=== PATIENT | male | born 1950 | race Caucasian/White ===

== ENCOUNTER 2019-12-30 11:48 | Outpatient (REF) | payer MEDICARE, SELFPAY ==
[2019-12-30 13:10] LABS: Alanine Aminotransferase 11 U/L (0-40); Alkaline Phosphatase 156 U/L (39-117); Anion Gap 12 (12-20); Aspartate Amino Transferase 12 U/L (5-37); Bilirubin Total 0.6 mg/dL (0.0-1.0); Blood Urea Nitrogen 11 mg/dL (9-16); Calcium 9.1 mg/dL (8.4-10.2); Carbon Dioxide 29 mmol/L (22-29); Chloride 103 mmol/L (96-108); Cholesterol 191 mg/dL; Estimated Glomerular Filt Rate > 60; Glucose Fasting 108 mg/dL (60-99); HDL Cholesterol 35 mg/dL; LDL Cholesterol Calculated 138 mg/dl; Potassium 4.2 mmol/l (3.3-5.1); Sodium 140 mmol/L (135-145); Total Protein 7.5 g/dL (6.5-8.0); Triglycerides 90 mg/dL
== END 2019-12-30 11:49 | disposition home or self-care (01) ==
LOC: HO.LAB 11:48
PROVIDERS: PCP Internal Medicine; Visit Provider Internal Medicine
DX: E78.00 Pure hypercholesterolemia, unspecified (principal)
CPT/HCPCS: 80053; 80061

== ENCOUNTER 2019-12-31 12:15 | Outpatient (REF) | payer MEDICARE, SELFPAY ==
[2019-12-31 12:41] LABS: MANUAL DIFF FLAG NO
[2019-12-31 12:46] LABS: Basophils Percent Auto 0.5 % (0-2); Eosinophils Absolute Auto 0.1 X10*3/uL (0.0-0.4); Eosinophils Percent Auto 1.4 % (0-4); Hemoglobin 12.1 g/dl (14.0-18.0); Imm Gran Abs Auto 0.02 X10*3/uL (0.00-0.03); Imm Gran Pct Auto 0.2 % (0.0-0.4); Lymphocytes Absolute Auto 1.9 X10*3/uL (1.2-4.9); Lymphocytes Percent Auto 23.2 % (20-40); Mean Corpuscular HGB Conc 31.8 g/dl (31.0-36.0); Mean Corpuscular Hemoglobin 29.5 pg (27.0-33.0); Mean Corpuscular Volume 92.7 fL (80-98); Monocytes Absolute Auto 0.8 X10*3/uL (0.1-1.2); Monocytes Percent Auto 9.3 % (2-11); Neutrophils Absolute Auto 5.4 X10*3/uL (2.0-8.3); Neutrophils Percent Auto 65.4 % (45-73); Platelet Count 254 X10*3/uL (160-400); Red Cell Distribution Width 13.7 % (11.0-16.0); White Blood Count 8.3 X10*3/uL (4.8-10.8)
[2019-12-31 13:56] LABS: Alanine Aminotransferase 11 U/L (0-40); Alkaline Phosphatase 153 U/L (39-117); Anion Gap 12 (12-20); Aspartate Amino Transferase 14 U/L (5-37); Bilirubin Direct < 0.2 mg/dL (0.0-0.5); Bilirubin Total 0.3 mg/dL (0.0-1.0); Blood Urea Nitrogen 13 mg/dL (9-16); Carbon Dioxide 29 mmol/L (22-29); Chloride 102 mmol/L (96-108); Estimated Glomerular Filt Rate > 60; Glucose Random 105 mg/dL (60-115); Potassium 4.1 mmol/l (3.3-5.1); Sodium 139 mmol/L (135-145); Total Protein 7.4 g/dL (6.5-8.0)
[2019-12-31 14:16] LABS: T4 Thyroxine 7.1 ug/dL (4.5-12.0)
[2019-12-31 16:09] LABS: Folate 15.6 ng/mL (> or = 4.0); Vitamin B12 295 pg/mL (200-900)
== END 2019-12-31 12:16 | disposition home or self-care (01) ==
LOC: HO.LAB 12:15
PROVIDERS: Visit Provider Psychiatry & Neurology Neurology
DX: G30.9 Alzheimer's disease, unspecified (principal)
CPT/HCPCS: 36415; 80053; 80076; 82607; 82746; 84436; 84443; 85025

== ENCOUNTER 2020-01-21 09:08 | Outpatient (REF) | payer MEDICARE, SELFPAY ==
--- NOTE | 2020-01-21 09:09 | CT_ITS ---
EXAMINATION: CT HEAD WITHOUT CONTRAST CLINICAL INFORMATION: Alzheimer's disease. COMPARISON: None. TECHNIQUE: Contiguous axial imaging was performed from the skull base to vertex without intravenous administration of contrast. This CT examination was performed using dose optimization techniques as appropriate, variously including the following: *Automated exposure control *Adjustment of mA and/or kV according to patient size (this includes techniques or standardized protocols for targeted exams where dose is matched to indication/reason for exam; i.e. extremities or head) *Use of iterative reconstruction technique DLP: 681 mGy-cm. FINDINGS: There is no evidence of acute intracranial hemorrhage or territorial infarction. No abnormal mass effect or midline shift is seen. Marcelino to white matter differentiation is well preserved. No extra-axial fluid collections are identified. Lateral ventricles are symmetrical in size and mildly prominent and so a re the frontal cortical sulci. There is no abnormal attenuation within the brain parenchyma. There is diffuse calvarial osteopenia with no lytic or sclerotic process seen. The scalp soft tissues are normal. The mastoid air cells and visualized portions of the paranasal sinuses are well aerated. CT/CT head/brain wo con IMPRESSION: No acute intracranial process seen.
== END 2020-01-21 09:09 | disposition home or self-care (01) ==
LOC: HO.CT 09:08
PROVIDERS: PCP Internal Medicine; Visit Provider Psychiatry & Neurology Neurology
DX: S06.9X9A Unspecified intracranial injury with loss of consciousness of unspecified duration, initial encounter (principal); G30.9 Alzheimer's disease, unspecified
CPT/HCPCS: 70450

== ENCOUNTER 2020-02-05 20:40 | Emergency (ER) | payer MEDICARE, SELFPAY ==
[2020-02-05 20:50] VITALS: BP 118/66; BP 128/88; PULSE 83; PULSE 90; RESP 18; TEMP 37; O2SAT 97; O2SAT 99; BMI 25.7
--- NOTE | 2020-02-05 21:12 | CT_ITS ---
EXAMINATION: CT HEAD WITHOUT CONTRAST CT CERVICAL SPINE WITHOUT CONTRAST CLINICAL INFORMATION: Fall. COMPARISON: CT head and cervical spine 08/26/2019. CT head 01/21/2020. TECHNIQUE: Imaging was performed from the skull base to vertex without intravenous administration of contrast. In addition, helical noncontrast CT imaging was acquired through the cervical spine and source images were reviewed along with axial reconstructions and sagittal and coronal MPRs. [This CT examination was performed using dose optimization techniques as appropriate, variously including the following: *Automated exposure control *Adjustment of mA and/or kV according to patient size (this includes techniques or standardized protocols for targeted exams where dose is matched to indication/reason for exam; i.e. extremities or head) *Use of iterative reconstruction technique] DLP: 1017 mGy-cm FINDINGS: HEAD: No intracranial mass, hemorrhage, or midline shift is visualized. There is atrophy with prominence of the ventricles and the sulci and hypodensity of the periventricular white matter due to chronic small vessel ischemic disease. There are vascular calcifications of the internal carotid arteries bilaterally. No extra-axial collections are identified. The paranasal sinuses and mastoid air cells are well aerated. CERVICAL SPINE: There is no evidence of acute cervical spine fracture. Vertebral bodies remain normal in height. Cervical vertebrae have normal alignment. Cervical disc heights are normal. The facet joints are normal. No pre- or paravertebral soft tissue abnormality is identified. Limited assessment of the lung apices is unremarkable. CT/CT cervical spine wo con IMPRESSION: 1. No acute intracranial pathology. 2. No CT evidence of acute cervical spine fracture or traumatic subluxation
--- NOTE | 2020-02-05 21:12 | ED.FALL ---
HPI - Fall General Chief Complaint: Fall Stated Complaint: ankle pain Time Seen by Provider: 02/05/20 21:12 Source: patient and EMS Mode of arrival: EMS Limitations: altered mental status (dementia) History of Present Illness MD complaint: fall Onset (ago): unknown Fall from: standing Fall witnessed: no Place fall occurred: home Loss of consciousness: none Prolonged down time: no Symptoms prior to fall: none Context: other (not sure) Location of injury - extremities: right: ankle Related Data Home Medications Medication Instructions Recorded Confirmed atorvastatin 20 mg tablet 20 mg PO DAILY 01/20/20 02/05/20 Multi Vitamin 1 tab PO DAILY 02/05/20 02/05/20 Allergies Allergy/AdvReac Type Severity Reaction Status Date / Time No Known Allergies [NKA] Allergy Mild NOT Verified 02/01/20 09:06 APPLICABLE Review of Systems Review of Systems: Constitutional : No Fever, No Chills ENT/Mouth : No Ear Pain, No Hoarseness, No sore throat Eyes: No Eye Pain, No Swelling, No Redness, No Foreign Body Cardiovascular : No Chest Pain, No SOB Respiratory : No Cough, No Dyspnea Gastrointestinal : No Nausea, No Vomiting, No Diarrhea, No abdominal Pain Genitourinary : No Dysuria, No Hematuria Musculoskeletal : positive joint pain, No Myalgias, No Joint Swelling Skin : No Skin lacerations, No rash Neuro : No Weakness, No Numbness, No Loss of Consciousness, No Dizziness, No Headache Psych : No Anxiety/Panic, No Depression All other systems reviewed and are negative PMFSH Past Medical History Attestation statement: The following information was validated with the patient. Medical History Alzheimer's disease with early onset Diabetes mellitus Pure hypercholesterolemia Urinary incontinence Surgical History H/O hand surgery Family History Family History (Updated 01/19/20 @ 08:56 by EVA Liu) Father Throat cancer Mother Uterine cancer Family/Other FH: mental illness Social History Social History Alcohol intake: never Smoking Status: Never smoker Smoked in Last 30 Days: No Use of substances other than those prescribed or required for medical reasons: Unknown Advance Directives: No Advance Directives Information Provided: No Physical Exam Vital Signs: Vital Signs: Last Vital Signs Temp 97.9 F 02/05/20 23:59 Pulse 81 02/05/20 23:59 Resp 18 02/06/20 03:48 BP 138/77 02/05/20 23:59 Pulse Ox 99 02/05/20 23:59 Body Mass Index 25.7 Appearance: Alert. Oriented X2. No acute distress. Eyes: Pupils equal, round and reactive to light. ENT: Pharynx normal. Contusion to back of head Neck: Normal inspection. Neck supple. CVS: Normal heart rate and rhythm. Pulses normal. Respiratory: No respiratory distress. Breath sounds normal. Abdomen: Soft and nontender. Skin: Skin warm and dry. Normal skin color. Normal skin turgor. Extremities: No lower extremity edema. No calf ttp R ankle swelling around lateral malleolus - distal NV intact Neuro: Oriented X 2 No motor deficit. No sensory deficit. Course Course Course Narrative: Maricruz daughter [phone] - patient is very unsteady with frequent falls will have PT and CM involved for possible services, discussed results with daughter signed out to oncoming provider pending CM/PT Procedures Orthopedic Splinting/Casting Injury #1: Side: right Lower Extremity Injury Location: ankle Lower Extremity Immobilizer: AirCast MDM - Fall MDM Narrative Medical decision making narrative: 69 yo male with hx of dementia here with unwitnessed fall exam shows contusion to back of head and R ankle swelling - will need labs, EKG, UA, troponin, CT scan of head and neck given dementia, xrays of ankle, dispo per results and findings. Lab Data Result diagrams: 02/05/20 23:12 02/05/20 23:12 Labs: Lab Results 02/05/20 02/05/20 02/05/20 Range/Units 23:12 23:12 23:12 WBC 10.6 (4.8-10.8) X10*3/uL RBC 3.78 L (4.60-5.80) X10*6/uL Hgb 11.5 L (14.0-18.0) g/dl Hct 34.9 L (42-52) % MCV 92.3 (80-98) fL MCH 30.4 (27.0-33.0) pg MCHC 33.0 (31.0-36.0) g/dl RDW 13.5 (11.0-16.0) % Plt Count 212 (160-400) X10*3/uL MPV 11.2 (9.4-12.4) fL Immature Gran % (Auto) 0.2 (0.0-0.4) % Neut % (Auto) 74.9 H (45-73) % Lymph % (Auto) 14.7 L (20-40) % [place] % (Auto) 8.7 (2-11) % Eos % (Auto) 1.0 (0-4) % Baso % (Auto) 0.5 (0-2) % Lymph # (Auto) 1.6 (1.2-4.9) X10*3/uL [place] # (Auto) 0.9 (0.1-1.2) X10*3/uL Eos # (Auto) 0.1 (0.0-0.4) X10*3/uL Baso # (Auto) 0.1 (0.0-0.2) X10*3/uL Abs Immat Gran (auto) 0.02 (0.00-0.03) X10*3/uL Absolute Neuts (auto) 7.9 (2.0-8.3) X10*3/uL Absolute Nucleated RBC 0.000 (0.0-0.012) X10*3/uL Nucleated RBC % (auto) 0.0 (0.0-0.2) /100WBC PT 13.3 H (10.8-13.0) SEC INR 1.1 (0.9-1.1) APTT 31.5 (24.1-38.0) SEC Sodium 139 (135-145) mmol/L Potassium 4.3 (3.3-5.1) mmol/l Chloride 106 (96-108) mmol/L Carbon Dioxide 23 (22-29) mmol/L Anion Gap 14 (12-20) BUN 18 H (9-16) mg/dL Creatinine 0.79 (0.5-1.4) mg/dL Estim Creat Clear Calc 74.9 Estimated GFR > 60 Random Glucose 116 H (60-115) mg/dL Calcium 8.6 (8.4-10.2) mg/dL Magnesium (1.6-2.6) mg/dL Total Bilirubin (0.0-1.0) mg/dL Direct Bilirubin (0.0-0.5) mg/dL AST (5-37) U/L ALT (0-40) U/L Alkaline Phosphatase (39-117) U/L Total Creatine Kinase 201 H (38-174) U/L Troponin I High Sens (<3.5-35.0) ng/L Total Protein (6.5-8.0) g/dL Albumin (3.5-5.0) g/dL Lipase (8-78) U/L Urine Color Urine Appearance Urine pH (5.0-8.0) Ur Specific [place] (1.005-1.025) Urine Protein (NEG-TRACE) MG/DL Urine Glucose (UA) (NEG) MG/DL Urine Ketones (NEG) MG/DL Urine Blood (NEG) Urine Nitrite (NEG) Ur Leukocyte Esterase (NEG) 02/05/20 02/05/20 02/05/20 Range/Units 23:12 23:12 23:44 WBC (4.8-10.8) X10*3/uL RBC (4.60-5.80) X10*6/uL Hgb (14.0-18.0) g/dl Hct (42-52) % MCV (80-98) fL MCH (27.0-33.0) pg MCHC (31.0-36.0) g/dl RDW (11.0-16.0) % Plt Count (160-400) X10*3/uL MPV (9.4-12.4) fL Immature Gran % (Auto) (0.0-0.4) % Neut % (Auto) (45-73) % Lymph % (Auto) (20-40) % [place] % (Auto) (2-11) % Eos % (Auto) (0-4) % Baso % (Auto) (0-2) % Lymph # (Auto) (1.2-4.9) X10*3/uL [place] # (Auto) (0.1-1.2) X10*3/uL Eos # (Auto) (0.0-0.4) X10*3/uL Baso # (Auto) (0.0-0.2) X10*3/uL Abs Immat Gran (auto) (0.00-0.03) X10*3/uL Absolute Neuts (auto) (2.0-8.3) X10*3/uL Absolute Nucleated RBC (0.0-0.012) X10*3/uL Nucleated RBC % (auto) (0.0-0.2) /100WBC PT (10.8-13.0) SEC INR (0.9-1.1) APTT (24.1-38.0) SEC Sodium (135-145) mmol/L Potassium (3.3-5.1) mmol/l Chloride (96-108) mmol/L Carbon Dioxide (22-29) mmol/L Anion Gap (12-20) BUN (9-16) mg/dL Creatinine (0.5-1.4) mg/dL Estim Creat Clear Calc Estimated GFR Random Glucose (60-115) mg/dL Calcium (8.4-10.2) mg/dL Magnesium 1.9 (1.6-2.6) mg/dL Total Bilirubin 0.4 (0.0-1.0) mg/dL Direct Bilirubin < 0.2 (0.0-0.5) mg/dL AST 17 (5-37) U/L ALT 15 (0-40) U/L Alkaline Phosphatase 151 H (39-117) U/L Total Creatine Kinase (38-174) U/L Troponin I High Sens < 3.5 (<3.5-35.0) ng/L Total Protein 7.1 (6.5-8.0) g/dL Albumin 3.9 (3.5-5.0) g/dL Lipase 39 (8-78) U/L Urine Color YELLOW Urine Appearance CLEAR Urine pH 7.0 (5.0-8.0) Ur Specific [place] 1.020 (1.005-1.025) Urine Protein NEG (NEG-TRACE) MG/DL Urine Glucose (UA) NEG (NEG) MG/DL Urine Ketones NEG (NEG) MG/DL Urine Blood NEG (NEG) Urine Nitrite NEG (NEG) Ur Leukocyte Esterase NEG (NEG) ECG Data Attestation: I personally reviewed and interpreted this ECG as follows: ECG interpretation date: 02/05/20 ECG interpretation time: 22:12 Interpretation: Rate: 74 Rhythm: NSR [place]: normal , LVH Normal P waves. Normal MICHAEL. Normal QRS complex. ST T wave : normal qTC: normal prior studies: no acute ischemia, no change The study has been interpreted contemporaneously by me. . Discharge Plan Discharge Clinical Impression: At high risk for falls Ankle sprain Qualifiers: Encounter type: initial encounter Involved ligament of ankle: anterior talofibular ligament Laterality: right Qualified Code(s): S93.491A - Sprain of other ligament of right ankle, initial encounter Contusion Qualifiers: Encounter type: initial encounter Contusion area: head Contusion of head detail: scalp Qualified Code(s): S00.03XA - Contusion of scalp, initial encounter Instructions: Ankle Sprain (ED), Head Injury (ED), Fall Prevention (ED) Additional Instructions: return to ED for any worsening symptoms or concerns wear a splint for the next 10 days, can weight bear as tolerated Prescriptions: No Action Multi Vitamin 1 tab PO DAILY RF: 0 atorvastatin 20 mg tablet 20 mg PO DAILY RF: 0 Referrals: Physician,Unknown [Primary Care Provider] - 2 days (PCP as needed)
--- NOTE | 2020-02-05 21:13 | ECG_ITS ---
Test Reason : FALL Blood Pressure : / mmHG Vent. Rate : 085 BPM Atrial Rate : 085 BPM P-R Int : 148 ms QRS Dur : 078 ms QT Int : 368 ms P-R-T Axes : 058 -02 031 degrees QTc Int : 437 ms Normal sinus rhythm Minimal voltage criteria for LVH, may be normal variant ST elevation, consider early repolarization Borderline ECG When compared with ECG of 26-AUG-2019 18:53, Premature atrial complexes are no longer Present Referred By: Marlyn Reeder Electronically Signed By:BRIANNA JOHNSON MD
--- NOTE | 2020-02-05 21:13 | XR_ITS ---
EXAMINATION: CHEST 1 VIEW CLINICAL INFORMATION: Pain after fall. COMPARISON: August 26, 2019. TECHNIQUE: An AP view of the chest is provided. FINDINGS: The cardiac silhouette is not enlarged. The mediastinal and hilar contours are unremarkable. There are neither pleural effusions nor pneumothoraces. There are no consolidations. The osseous structures are stable. XR/XR chest 1V IMPRESSION: No evidence for acute disease.
--- NOTE | 2020-02-05 21:21 | XR_ITS ---
EXAMINATION: RIGHT ANKLE 3 VIEWS CLINICAL INFORMATION: Pain after fall. COMPARISON: None. TECHNIQUE: AP, lateral, oblique views of the right ankle were obtained. FINDINGS: There are no fractures or dislocations. There is soft tissue swelling overlying the lateral malleolus. No ankle joint effusion is identified. XR/XR ankle RT min 3V IMPRESSION: Mild soft tissue swelling without fracture or dislocation.
[2020-02-05 22:00] VITALS: BP 131/74; PULSE 77; RESP 20; TEMP 36.8; O2SAT 97
[2020-02-05] MEDS: Acetaminophen 325 MG TABLET 650 MG PO (22:22)
--- NOTE | 2020-02-05 22:44 | PC.NURSE ---
Addendum entered by Gabriel Royal RN 02/06/20 03:54: Updates given to daughter that pt will be placed on case management, and PT consult in the morning. Original Note: Lopez Alcantara can be reached at [phone]. Call her with updates and a ride upon discharge.
[2020-02-05 23:21] LABS: MANUAL DIFF FLAG NO
[2020-02-05 23:24] LABS: Basophils Absolute Auto 0.1 X10*3/uL (0.0-0.2); Basophils Percent Auto 0.5 % (0-2); Eosinophils Absolute Auto 0.1 X10*3/uL (0.0-0.4); Hematocrit 34.9 % (42-52); Hemoglobin 11.5 g/dl (14.0-18.0); Imm Gran Abs Auto 0.02 X10*3/uL (0.00-0.03); Imm Gran Pct Auto 0.2 % (0.0-0.4); Lymphocytes Absolute Auto 1.6 X10*3/uL (1.2-4.9); Lymphocytes Percent Auto 14.7 % (20-40); Mean Corpuscular Hemoglobin 30.4 pg (27.0-33.0); Mean Corpuscular Volume 92.3 fL (80-98); Mean Platelet Volume 11.2 fL (9.4-12.4); Monocytes Absolute Auto 0.9 X10*3/uL (0.1-1.2); Monocytes Percent Auto 8.7 % (2-11); Neutrophils Absolute Auto 7.9 X10*3/uL (2.0-8.3); Neutrophils Percent Auto 74.9 % (45-73); Platelet Count 212 X10*3/uL (160-400); Red Blood Count 3.78 X10*6/uL (4.60-5.80); Red Cell Distribution Width 13.5 % (11.0-16.0); White Blood Count 10.6 X10*3/uL (4.8-10.8)
[2020-02-05 23:31] LABS: INTERNATIONAL NORM RATIO 1.1 (0.9-1.1); Prothrombin Time 13.3 SEC (10.8-13.0)
[2020-02-05 23:34] LABS: Partial Thromboplastin Time 31.5 SEC (24.1-38.0)
[2020-02-05 23:51] LABS: Anion Gap 14 (12-20); Blood Urea Nitrogen 18 mg/dL (9-16); Calcium 8.6 mg/dL (8.4-10.2); Carbon Dioxide 23 mmol/L (22-29); Chloride 106 mmol/L (96-108); Creatinine Clr Calc Pharmacy 74.9; Estimated Glomerular Filt Rate > 60; Glucose Random 116 mg/dL (60-115); Potassium 4.3 mmol/l (3.3-5.1); Sodium 139 mmol/L (135-145)
[2020-02-05 23:52] LABS: Alanine Aminotransferase 15 U/L (0-40); Albumin Level 3.9 g/dL (3.5-5.0); Alkaline Phosphatase 151 U/L (39-117); Aspartate Amino Transferase 17 U/L (5-37); Bilirubin Direct < 0.2 mg/dL (0.0-0.5); Bilirubin Total 0.4 mg/dL (0.0-1.0); Lipase 39 U/L (8-78); Magnesium 1.9 mg/dL (1.6-2.6); Total Protein 7.1 g/dL (6.5-8.0)
[2020-02-05 23:54] LABS: Glucose Urine UA NEG (NEG); Leukocyte Esterase Urine NEG (NEG); Nitrite Urine NEG (NEG); Urine Blood NEG (NEG); Urine Ketones NEG (NEG); Urine Protein NEG (NEG-TRACE)
[2020-02-05 23:55] LABS: Appearance Urine CLEAR; Color Urine YELLOW
[2020-02-05 23:58] LABS: Troponin-I High Sensitivity < 3.5 ng/L (<3.5-35.0)
[2020-02-05 23:59] VITALS: BP 138/77; PULSE 81; RESP 17; TEMP 36.6; O2SAT 99
[2020-02-06] MEDS: LORazepam 1 MG TABLET PO (01:23)
[2020-02-06] MEDS: Melatonin 3 MG TABLET 6 MG PO (01:23)
[2020-02-06 02:00] VITALS: RESP 18
[2020-02-06 03:48] VITALS: RESP 18
--- NOTE | 2020-02-06 03:51 | MHC.PIE ---
P: Pt became restless, anxious trying to get out of the bed, and unable to sleep. I: Per MD, Ativan 1 mg PO and, Melatonin 6 mg PO given at 0123. E: Pt slept well. Will continue to monitor.
[2020-02-06 06:00] VITALS: RESP 18
[2020-02-06 08:31] VITALS: BP 138/73; PULSE 76; O2SAT 99
[2020-02-06] MEDS: Atorvastatin Calcium 20 MG TABLET PO (08:38)
[2020-02-06] MEDS: Multivitamin TABLET 1 TAB PO (08:38)
[2020-02-06 09:30] VITALS: BP 138/73; PULSE 76; O2SAT 99
--- NOTE | 2020-02-06 10:27 | MHC.CM.ED ---
Received consult for assessment of d/c needs: pt resides alone with 19 hrs of WET [facility]EL[employer] services and family support. He was brought to [place] for eval after a fall at home with ankle sprain and head contusion. Pt has a dx of dementia which dtr states consists of mild STM loss at the present time. Per conversation with pt's dtr, Ava, pt has been having balance issues and incontinence both are being work up by PCP in the outpt setting. She states he uses a rollator walker and has a cane. He also uses incontinence briefs. ED eval reveals ankle sprain , normal CT of head and no lab or urine abnormalities. PT eval supports acute rehab or home with more support, PT, and 2 wheeled walker. Discussed findings with Ava. She states family is very apprehensive about placement d/t COVID concerns and would prefer pt to return to home. Stressed with her PT findings for safety and maximization of abilities: dtr understands but feels pt will be better managed at home by family and [facility] RN/PT. Ava would like a referral to [facility] (completed and waiting for acceptance). Script for 2 wheeled walker to be given with d/c instructions as well as contact name/numbers for area medical supply companies for walker. Above relayed to ED MD and RN who are in agreement with above plan. Family requesting BLS transport to home for safety. Referral placed.
--- NOTE | 2020-02-06 14:11 | MHC.CM.ED ---
[facility] can accept pt onto services with a delay in PT start time, however. [facility] liasion will try and expedite PT visit. This CM attempted to contact [facility] for an authorization of [facility] services: on hold for 60+minutes: no response. Auth will need to be obtained on 02/07 for a [facility] start time of services for the same day in the afternoon. Liamiranda Wolfe aware of plan and will await [facility] CM confirmation of [facility] Auth Saturday. This information relayed to pt's dtr, Ava via phone call.
== END 2020-02-06 11:32 | disposition home or self-care (01) ==
PROVIDERS: Emergency Provider Emergency Medicine
DX: S93.491A Sprain of other ligament of right ankle, initial encounter (principal); S00.03XA Contusion of scalp, initial encounter; M25.571 Pain in right ankle and joints of right foot; G44.309 Post-traumatic headache, unspecified, not intractable; M54.2 Cervicalgia; W01.0XXA Fall on same level from slipping, tripping and stumbling without subsequent striking against object, initial encounter; Y93.9 Activity, unspecified; Y92.9 Unspecified place or not applicable; Y99.9 Unspecified external cause status; Z79.899 Other long term (current) drug therapy
CPT/HCPCS: 36415; 70450; 71045; 72125; 73610; 80048; 80076; 81003; 82550; 83690; 83735; 84484; 85025; 85610; 85730; 93005; 97162; 99284

== ENCOUNTER 2020-02-07 09:10 | Emergency (ER) | payer MEDICARE, SELFPAY ==
[2020-02-07] VITALS (8 sets, daily range): BP systolic 114–153; BP diastolic 55–72; PULSE 65–99; RESP 16–18; TEMP 36.8–36.9; O2SAT 92–99; BMI 28.3
--- NOTE | 2020-02-07 09:27 | XR_ITS ---
EXAMINATION: CHEST 2 VIEWS CLINICAL INFORMATION: fall, pain . COMPARISON: 02/05/2020 chest x-ray. TECHNIQUE: AP frontal and lateral views of the chest obtained FINDINGS: Lungs are hypoexpanded. I do not appreciate any superimposed focal infiltrate, effusion, edema, or pneumothorax. There is vascular prominence along the right medial apex when compared to today's CT scan of the neck. Cardiac silhouette within normal limits for size with vascular calcification in the aorta. Chronic bony deformity to the right clavicle. XR/XR chest 2V IMPRESSION: Hypoexpanded with chronic appearing changes but no acute airspace disease.
--- NOTE | 2020-02-07 09:27 | XR_ITS ---
Examination: XR thoracic spine 2V, XR lumbar spine 2-3V Indication: fall, pain Comparison: 12/25/2016 plain films Technique: 3 views of the thoracic spine 3 views of the lumbar spine obtained. Findings: Thoracic spine: Bones are normal anatomic alignment. I do not appreciate any acute fracture or dislocation. 2 body heights are preserved. Prominent anterior osteophyte formation throughout the mid thoracic spine noted. No associated rib abnormality. Lumbosacral spine: Bones are normal anatomic alignment with no acute fracture or spondylolisthesis. Again multilevel degenerative changes are seen with prominent osteophyte formation. There is very mild anterior compression deformity of the L2 vertebral body which had a more normal appearance on the 12/25/2006 study XR/XR lumbar spine 2-3V Impression: Multilevel degenerative changes throughout the thoracic lumbar spine. There is mild anterior compression of the superior endplate of the L2 vertebral body of indeterminate age although this had a more normal appearance on the 2006 examination. Would clinically correlate for point tenderness in this location.
--- NOTE | 2020-02-07 09:27 | ECG_ITS ---
Test Reason : FALL Blood Pressure : / mmHG Vent. Rate : 080 BPM Atrial Rate : 080 BPM P-R Int : 150 ms QRS Dur : 080 ms QT Int : 376 ms P-R-T Axes : 063 002 025 degrees QTc Int : 433 ms Normal sinus rhythm Possible Left atrial enlargement Left ventricular hypertrophy Abnormal ECG When compared with ECG of 05-FEB-2020 22:07, No significant change was found Referred By: Jenna Bassett Electronically Signed By:BRIANNA JOHNSON MD
--- NOTE | 2020-02-07 09:27 | CT_ITS ---
EXAMINATION: CT HEAD WITHOUT CONTRAST CLINICAL INFORMATION: Fall. COMPARISON: Previous exam most recent 02/05/2020 TECHNIQUE: Contiguous axial imaging was performed from the skull base to vertex without intravenous administration of contrast. This CT examination was performed using dose optimization techniques as appropriate, variously including the following: *Automated exposure control *Adjustment of mA and/or kV according to patient size (this includes techniques or standardized protocols for targeted exams where dose is matched to indication/reason for exam; i.e. extremities or head) *Use of iterative reconstruction technique DLP: 707 mGy-cm FINDINGS: There is no evidence of an extra-axial collection. There is no evidence of intra-axial or extra-axial hemorrhage. Ventricles and extra-axial CSF spaces are prominent suggestive of generalized atrophy. There is nonspecific periventricular white matter disease. No mass, mass effect or infarct is seen. Review of bone windows demonstrates no evidence of skull fracture. There are minimal inflammatory changes in the left maxillary sinus. Visualized paranasal sinuses, mastoid air cells and middle ears are otherwise clear. CT/CT head/brain wo con IMPRESSION: No acute findings. Generalized atrophy and nonspecific periventricular white matter disease.
--- NOTE | 2020-02-07 09:27 | CT_ITS ---
EXAMINATION: CT CERVICAL SPINE WITHOUT CONTRAST CLINICAL INFORMATION: Fall. COMPARISON: Previous exam most recent 02/05/2020 TECHNIQUE: Axial images through the cervical spine without contrast. Sagittal and coronal reconstructions on the technologist workstation were performed. This CT examination was performed using dose optimization techniques as appropriate, variously including the following: *Automated exposure control *Adjustment of mA and/or kV according to patient size (this includes techniques or standardized protocols for targeted exams where dose is matched to indication/reason for exam; i.e. extremities or head) *Use of iterative reconstruction technique DLP: 386 mGy-cm FINDINGS: Bone alignment is normal. No fracture or dislocation is seen. There is mild degenerative spondylosis at C4-C5 and C6-C7. Disc spaces are normal. There is mild facet arthritis at C3-C3 on the left.. Prevertebral soft tissues are normal. There is bilateral carotid calcification. Visualized lung apices are clear. CT/CT cervical spine wo con IMPRESSION: Mild degenerative changes. No fracture or dislocation seen.
--- NOTE | 2020-02-07 09:27 | XR_ITS ---
Examination: XR thoracic spine 2V, XR lumbar spine 2-3V Indication: fall, pain Comparison: 12/25/2016 plain films Technique: 3 views of the thoracic spine 3 views of the lumbar spine obtained. Findings: Thoracic spine: Bones are normal anatomic alignment. I do not appreciate any acute fracture or dislocation. 2 body heights are preserved. Prominent anterior osteophyte formation throughout the mid thoracic spine noted. No associated rib abnormality. Lumbosacral spine: Bones are normal anatomic alignment with no acute fracture or spondylolisthesis. Again multilevel degenerative changes are seen with prominent osteophyte formation. There is very mild anterior compression deformity of the L2 vertebral body which had a more normal appearance on the 12/25/2006 study XR/XR thoracic spine 2V Impression: Multilevel degenerative changes throughout the thoracic lumbar spine. There is mild anterior compression of the superior endplate of the L2 vertebral body of indeterminate age although this had a more normal appearance on the 2006 examination. Would clinically correlate for point tenderness in this location.
--- NOTE | 2020-02-07 09:31 | ED_ITS ---
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 Per report family heard a thud and found patient lying next to his bed. Due to baseline confusion the patient is unable to tell me what happened. He is unsure if he fell or slipped out of bed. He does not recall any pre fall symptoms of dizziness, chest pain or shortness of breath. He is complaining of some mid to low back pain. No other complaints. Of note, the patient was seen in this emergency department 2 days ago after a fall. He was seen by physical therapy and for recommendation which short-term rehab. Family felt very strongly about the patient being home with services. He was transferred back home with home care services. MD complaint: fall Onset (ago): hour(s) Fall from: from height (distance) Fall witnessed: no Place fall occurred: home Loss of consciousness: none Prolonged down time: no Symptoms prior to fall: none Context: tripped/slipped Location of injury: back Related Data Home Medications Medication Instructions Recorded Confirmed atorvastatin 20 mg tablet 20 mg PO DAILY 01/20/20 02/07/20 Multi Vitamin 1 tab PO DAILY 02/05/20 02/05/20 Previous Rx's Medication Instructions Recorded walker #1 ea 02/06/20 Allergies Allergy/AdvReac Type Severity Reaction Status Date / Time No Known Allergies [NKA] Allergy Mild NOT Verified 02/07/20 09:20 APPLICABLE Review of Systems Review of Systems: Yes all other systems are reviewed and are negative Constitutional: Constitutional: Reports no additional constitutional complaints, Denies body ache(s), Denies chills, Denies fever(s), Denies headache(s) and Denies weakness Eyes: Eyes: Reports no additional eye complaints and Denies change in vision ENT: Reports system reviewed and no additional complaints, except as documented, Denies dizziness, Denies headache(s), Denies nasal congestion, Denies nasal discharge and Denies neck pain Cardiovascular: Cardiovascular: Reports no additional cardiovascular complaints, Denies chest pain, Denies leg edema and Denies dyspnea Respiratory: Respiratory: Reports no additional respiratory complaints, Denies cough and Denies dyspnea Gastrointestinal: Gastrointestinal: Reports no additional gastrointestinal complaints, Denies abdominal pain, Denies diarrhea, Denies nausea and Denies vomiting Genitourinary: Genitourinary: Denies urinary incontinence Musculoskeletal: Musculoskeletal: Reports no additional musculoskeletal complaints, Reports back pain, Denies arthralgias, Denies joint swelling, Denies neck pain, Denies numbness and Denies tingling Integumentary/Breasts: Skin/Breast: Reports system reviewed and no additional complaints, except as docu and Denies rash Neurologic: Reports system reviewed and no additional complaints, except as documented, Denies Abnormal speech present, Denies dizziness, Denies headache(s), Denies numbness, Denies tingling and Denies weakness PMFSH Past Medical History Attestation statement: The following information was validated with the patient. Source: old records reviewed and obtained from family Medical History Alzheimer's disease with early onset Diabetes mellitus Pure hypercholesterolemia Urinary incontinence Surgical History H/O hand surgery Family History Family History Father Throat cancer Mother Uterine cancer Family/Other FH: mental illness Social History Social History Alcohol intake: never Smoking Status: Never smoker Use of substances other than those prescribed or required for medical reasons: No Advance Directives: No Advance Directives Information Provided: Yes Physical Exam Vital Signs: Vital Signs: Last Vital Signs Temp 98.5 F 02/07/20 16:41 Pulse 85 02/07/20 16:41 Resp 18 02/07/20 16:41 BP 153/70 H 02/07/20 16:41 Pulse Ox 99 02/07/20 16:41 Body Mass Index 28.3 Const: General: cooperative Orientation/consciousness: oriented to person and oriented to place Limitations: altered mental status (confused, limited exam and ROS) HENMT: Head: Yes normal to inspection Ears: hearing grossly normal bilaterally General nose exam: Normal external nose present Face and sinus: Yes normal facial exam Mouth: Normal oral and palatal mucosa present Throat: Yes posterior oropharynx normal Eyes: General: appearance normal, both eyes and all related structures Pupils: Equal, round and reactive pupils present Neck: Neck: Yes normal visual inspection Chest: Chest palpation & inspection: normal inspection of the chest Resp: Effort & Inspection: normal respiratory effort Auscultation: clear to auscultation bilaterally Cardio: Rate: regular rate Rhythm: regular rhythm Peripheral pulses: Peripheral pulses 2+ throughout GI: Inspection: Yes normal to inspection Palpation (GI): Soft to palpation and nontender Auscultation: normal bowel sounds : General: Yes no CVA tenderness Back/Spine/Pelvis: Other: Moderate tenderness midthoracic spine and lumbar spine. No step-offs or deformities. No obvious ecchymosis, crepitus or deformities. Back: no CVA tenderness Thoracic/Lumbar Spine: thoracic and lumbar spine normal to inspection Skin: General skin exam: no rashes or lesions noted Neuro: General: oriented to person, oriented to place, no focal motor deficits and normal sensation to monofilament Cranial nerves: Yes Equal, round and reactive pupils present Cognition (Neuro): normal cognition Speech: No Abnormal speech present Gait exam (Neuro): Normal gait present Motor exam (neuro): 5/5 motor strength present throughout Extrem: General: Yes normal to inspection Course Course Course Narrative: 69-year-old male here status post mechanical fall however unwitnessed at home. Will need to rule out underlying cause with EKG, labs, troponin. Due to trauma will need imaging including CT head and neck. Due to recent falls and fall this morning with previous recommendations by Physical therapy for short-term rehab I did discuss this with the patient's daughter who is his HCP. at this time she believes short-term rehab placement is best. She tells me the patient forgets to ask for help when getting out of bed and he falls because when he stands his remembers he has ankle sprain and this causes him pain and he falls. Case management made aware. 1130- X-ray shows a mild anterior compression of the superior endplate of L2 vertebral body of indeterminate age. may be from previous fall or fall this morning. All other imaging unremarkable. Labs reviewed and unremarkable. Case management is involved and will work on placement. Family is aware and agreeable to this. The patient was witnessed while in the emergency department to have the slip out of bed landing on his buttocks. There was no head injury or trauma. He was able to get up with 1 assist. Repeat neuro exam unchanged. 1415-Pending placement. Rapid COVID done. Medications reconciled. 1700-Spoke to CM. Patient will need be placed tonight d/t insurance need prior auth. Sign out to Alexsander GR pending above. MDM - Fall Medical Records Attestation: I reviewed the patient's medical records. Lab Data Attestation: I reviewed the patient's lab results. Result diagrams: 02/07/20 09:39 02/07/20 09:39 Labs: Lab Results 02/07/20 02/07/20 02/07/20 Range/Units 09:39 09:39 09:39 WBC 10.8 (4.8-10.8) X10*3/uL RBC 3.77 L (4.60-5.80) X10*6/uL Hgb 11.3 L (14.0-18.0) g/dl Hct 34.2 L (42-52) % MCV 90.7 (80-98) fL MCH 30.0 (27.0-33.0) pg MCHC 33.0 (31.0-36.0) g/dl RDW 13.5 (11.0-16.0) % Plt Count 195 (160-400) X10*3/uL MPV 11.0 (9.4-12.4) fL Immature Gran % (Auto) 0.4 (0.0-0.4) % Neut % (Auto) 76.8 H (45-73) % Lymph % (Auto) 11.8 L (20-40) % [place] % (Auto) 10.5 (2-11) % Eos % (Auto) 0.2 (0-4) % Baso % (Auto) 0.3 (0-2) % Lymph # (Auto) 1.3 (1.2-4.9) X10*3/uL [place] # (Auto) 1.1 (0.1-1.2) X10*3/uL Eos # (Auto) 0.0 (0.0-0.4) X10*3/uL Baso # (Auto) 0.0 (0.0-0.2) X10*3/uL Abs Immat Gran (auto) 0.04 H (0.00-0.03) X10*3/uL Absolute Neuts (auto) 8.3 (2.0-8.3) X10*3/uL Absolute Nucleated RBC 0.000 (0.0-0.012) X10*3/uL Nucleated RBC % (auto) 0.0 (0.0-0.2) /100WBC Sodium 134 L (135-145) mmol/L Potassium 4.2 (3.3-5.1) mmol/l Chloride 101 (96-108) mmol/L Carbon Dioxide 24 (22-29) mmol/L Anion Gap 13 (12-20) BUN 18 H (9-16) mg/dL Creatinine 0.75 (0.5-1.4) mg/dL Estim Creat Clear Calc 87.3 Estimated GFR > 60 Random Glucose 124 H (60-115) mg/dL Calcium 8.6 (8.4-10.2) mg/dL Troponin I High Sens < 3.5 (<3.5-35.0) ng/L Urine Color Urine Appearance Urine pH (5.0-8.0) Ur Specific [place] (1.005-1.025) Urine Protein (NEG-TRACE) MG/DL Urine Glucose (UA) (NEG) MG/DL Urine Ketones (NEG) MG/DL Urine Blood (NEG) Urine Nitrite (NEG) Ur Leukocyte Esterase (NEG) COVID-19 (BART) (Negative) COVID-19 Clin Com 02/07/20 02/07/20 Range/Units 10:10 13:56 WBC (4.8-10.8) X10*3/uL RBC (4.60-5.80) X10*6/uL Hgb (14.0-18.0) g/dl Hct (42-52) % MCV (80-98) fL MCH (27.0-33.0) pg MCHC (31.0-36.0) g/dl RDW (11.0-16.0) % Plt Count (160-400) X10*3/uL MPV (9.4-12.4) fL Immature Gran % (Auto) (0.0-0.4) % Neut % (Auto) (45-73) % Lymph % (Auto) (20-40) % [place] % (Auto) (2-11) % Eos % (Auto) (0-4) % Baso % (Auto) (0-2) % Lymph # (Auto) (1.2-4.9) X10*3/uL [place] # (Auto) (0.1-1.2) X10*3/uL Eos # (Auto) (0.0-0.4) X10*3/uL Baso # (Auto) (0.0-0.2) X10*3/uL Abs Immat Gran (auto) (0.00-0.03) X10*3/uL Absolute Neuts (auto) (2.0-8.3) X10*3/uL Absolute Nucleated RBC (0.0-0.012) X10*3/uL Nucleated RBC % (auto) (0.0-0.2) /100WBC Sodium (135-145) mmol/L Potassium (3.3-5.1) mmol/l Chloride (96-108) mmol/L Carbon Dioxide (22-29) mmol/L Anion Gap (12-20) BUN (9-16) mg/dL Creatinine (0.5-1.4) mg/dL Estim Creat Clear Calc Estimated GFR Random Glucose (60-115) mg/dL Calcium (8.4-10.2) mg/dL Troponin I High Sens (<3.5-35.0) ng/L Urine Color YELLOW Urine Appearance HAZY Urine pH 6.0 (5.0-8.0) Ur Specific [place] 1.020 (1.005-1.025) Urine Protein NEG (NEG-TRACE) MG/DL Urine Glucose (UA) NEG (NEG) MG/DL Urine Ketones 15 (NEG) MG/DL Urine Blood NEG (NEG) Urine Nitrite NEG (NEG) Ur Leukocyte Esterase NEG (NEG) COVID-19 (BART) Negative (Negative) COVID-19 Clin Com See Note Imaging Data CT scan head/neck: Attestation: I personally reviewed and interpreted this imaging study as follows: Radiologist's impression: CLINICAL INFORMATION: Fall. COMPARISON: Previous exam most recent 02/05/2020 TECHNIQUE: Axial images through the cervical spine without contrast. Sagittal and coronal reconstructions on the technologist workstation were performed. This CT examination was performed using dose optimization techniques as appropriate, variously including the following: *Automated exposure control *Adjustment of mA and/or kV according to patient size (this includes techniques or standardized protocols for targeted exams where dose is matched to indication/reason for exam; i.e. extremities or head) *Use of iterative reconstruction technique DLP: 386 mGy-cm FINDINGS: Bone alignment is normal. No fracture or dislocation is seen. There is mild degenerative spondylosis at C4-C5 and C6-C7. Disc spaces are normal. There is mild facet arthritis at C3-C3 on the left.. Prevertebral soft tissues are normal. There is bilateral carotid calcification. Visualized lung apices are clear. CT/CT cervical spine wo con IMPRESSION: Mild degenerative changes. No fracture or dislocation seen. CLINICAL INFORMATION: Fall. COMPARISON: Previous exam most recent 02/05/2020 TECHNIQUE: Contiguous axial imaging was performed from the skull base to vertex without intravenous administration of contrast. This CT examination was performed using dose optimization techniques as appropriate, variously including the following: *Automated exposure control *Adjustment of mA and/or kV according to patient size (this includes techniques or standardized protocols for targeted exams where dose is matched to indication/reason for exam; i.e. extremities or head) *Use of iterative reconstruction technique DLP: 707 mGy-cm FINDINGS: There is no evidence of an extra-axial collection. There is no evidence of intra-axial or extra-axial hemorrhage. Ventricles and extra-axial CSF spaces are prominent suggestive of generalized atrophy. There is nonspecific periventricular white matter disease. No mass, mass effect or infarct is seen. Review of bone windows demonstrates no evidence of skull fracture. There are minimal inflammatory changes in the left maxillary sinus. Visualized paranasal sinuses, mastoid air cells and middle ears are otherwise clear. CT/CT head/brain wo con IMPRESSION: No acute findings. Generalized atrophy and nonspecific periventricular white matter disease. Chest x-ray: Attestation: I personally reviewed and interpreted this imaging study as follows: Radiologist's impression: EXAMINATION: CHEST 2 VIEWS CLINICAL INFORMATION: fall, pain . COMPARISON: 02/05/2020 chest x-ray. TECHNIQUE: AP frontal and lateral views of the chest obtained FINDINGS: Lungs are hypoexpanded. I do not appreciate any superimposed focal infiltrate, effusion, edema, or pneumothorax. There is vascular prominence along the right medial apex when compared to today's CT scan of the neck. Cardiac silhouette within normal limits for size with vascular calcification in the aorta. Chronic bony deformity to the right clavicle. XR/XR chest 2V IMPRESSION: Hypoexpanded with chronic appearing changes but no acute airspace disease. lumbar spine/thoracic spine: Attestation: I personally reviewed and interpreted this imaging study as follows: Radiologist's impression: [address] [address] XRay Report Signed Patient: Jr Blanca#: [id number] : 2Acct:[id number] Age/Sex: 69 / MADM Date: 02/07/20 Loc: HO.ED Attending Dr: Ordering Physician: ROLANDO BRIGHT NP Date of Service: 02/07/20 Procedure(s): XR lumbar spine 2-3V Accession Number(s): [id number] cc: ROLANDO BRIGHT NP~ Examination: XR thoracic spine 2V, XR lumbar spine 2-3V Indication: fall, pain Comparison: 12/25/2016 plain films Technique: 3 views of the thoracic spine 3 views of the lumbar spine obtained. Findings: Thoracic spine: Bones are normal anatomic alignment. I do not appreciate any acute fracture or dislocation. 2 body heights are preserved. Prominent anterior osteophyte formation throughout the mid thoracic spine noted. No associated rib abnormality. Lumbosacral spine: Bones are normal anatomic alignment with no acute fracture or spondylolisthesis. Again multilevel degenerative changes are seen with prominent osteophyte formation. There is very mild anterior compression deformity of the L2 vertebral body which had a more normal appearance on the 12/25/2006 study XR/XR lumbar spine 2-3V Impression: Multilevel degenerative changes throughout the thoracic lumbar spine. There is mild anterior compression of the superior endplate of the L2 vertebral body of indeterminate age although this had a more normal appearance on the 2006 examination. Would clinically correlate for point tenderness in this location. ECG Data Attestation: I personally reviewed and interpreted this ECG as follows: ECG interpretation date: 02/07/20 ECG interpretation time: 09:26 Interpretation: Normal sinus rhythm with a rate of 80, normal OK, normal QRS, normal QT Discharge Plan Discharge Clinical Impression: Accident due to mechanical fall without injury, Compression fracture Patient Disposition: Xfer SNF Prescriptions: No [facility] Multi Vitamin 1 tab PO DAILY RF: 0 (DME) walker Misc See Rx Instructions .ROUTE .MEDSUPPLY Qty: 1 RF: 0 atorvastatin 20 mg tablet 20 mg PO DAILY RF: 0
[2020-02-07 09:44] LABS: MANUAL DIFF FLAG NO
[2020-02-07 09:45] LABS: Basophils Percent Auto 0.3 % (0-2); Eosinophils Percent Auto 0.2 % (0-4); Hematocrit 34.2 % (42-52); Hemoglobin 11.3 g/dl (14.0-18.0); Imm Gran Abs Auto 0.04 X10*3/uL (0.00-0.03); Imm Gran Pct Auto 0.4 % (0.0-0.4); Lymphocytes Absolute Auto 1.3 X10*3/uL (1.2-4.9); Lymphocytes Percent Auto 11.8 % (20-40); Mean Corpuscular Volume 90.7 fL (80-98); Monocytes Absolute Auto 1.1 X10*3/uL (0.1-1.2); Monocytes Percent Auto 10.5 % (2-11); Neutrophils Absolute Auto 8.3 X10*3/uL (2.0-8.3); Neutrophils Percent Auto 76.8 % (45-73); Platelet Count 195 X10*3/uL (160-400); Red Blood Count 3.77 X10*6/uL (4.60-5.80); Red Cell Distribution Width 13.5 % (11.0-16.0); White Blood Count 10.8 X10*3/uL (4.8-10.8)
--- NOTE | 2020-02-07 09:46 | PC.NURSE ---
ARRIVES FROM HOME VIA EMS AFTER UNWITNESSED FALL AT HOME, HX DEMENTIA. PT DOES NOT REMEMBER FALL, DENIES HEAD PAIN. BUMP ON R SIDE OF HIS HEAD AND ANKLE PAIN FROM RECENT FALL, SEEN HERE FOR TX. CURRENTLY C/O MIDBACK PAIN, NEUROS INTACT. COFFEE GRINDER AT BEDSIDE. HCP TO BE CONTACTED, DAUGHTER ERICK [phone]
[2020-02-07 10:10] LABS: Anion Gap 13 (12-20); Blood Urea Nitrogen 18 mg/dL (9-16); Calcium 8.6 mg/dL (8.4-10.2); Carbon Dioxide 24 mmol/L (22-29); Chloride 101 mmol/L (96-108); Creatinine Clr Calc Pharmacy 87.3; Estimated Glomerular Filt Rate > 60; Glucose Random 124 mg/dL (60-115); Potassium 4.2 mmol/l (3.3-5.1); Sodium 134 mmol/L (135-145)
[2020-02-07 10:17] LABS: Troponin-I High Sensitivity < 3.5 ng/L (<3.5-35.0)
[2020-02-07 10:38] LABS: COVID-19 Test Negative (Negative); IDNOW Serial# 9DD0AD1C
--- NOTE | 2020-02-07 10:41 | MHC.CM.ED ---
Addendum entered by Daisy Hummel 02/07/20 15:59: [facility] was unable to obtain [employer] auth today. Pt will board in ED overnight and auth will be pursued on 02/07. Call placed to pt's dtr Ava at [phone] informing her of plan. Pt updated on plan as well. ED staff aware of overnight boarding Addendum entered by Daisy Hummel 02/07/20 13:25: Pt has been accepted to [facility] (memory unit) for STR. Pt states he will go wherever his daughter likes. Call placed to dtr and HCP, Ava informing her of offer. Pt will need [employer] auth and will then be able to transfer via [facility]. Ava pleased and in agreement with plan. Rapid COVID, HCP and other applicable documentation remitted to E. Will await auth Original Note: Pt just seen by CM on 02/05 returns from home after a fall - no apparent injury. Pt and family had opted to return to home yesterday despite PT recommendations for rehab citing concerns for COVID. Pt was set up with [facility] RN/PT to begin service on 02/07 and family support/supervision was to be increased. Pt and dtr Ava now receptive to STR/SNF placement. Broad referrals sent to [facility] contracted facilities. Awaiting rapid COVID results and accepting facility.
--- NOTE | 2020-02-07 10:43 | PC.NURSE ---
PT RESTING COMFORTABLY IN BED, DENIES ANY PAIN AT THIS TIME. AWAITING CT RESULTS. UPDATE PROVIDED TO DAUGHTER ERICK
--- NOTE | 2020-02-07 11:30 | PC.NURSE ---
AT APPROXIMATELY 1130H, PT EXPERIENCED UNWITNESSED FALL. HE FELL UPON ATTEMPTING TO STAND FROM END OF BED WHERE RAILS WERE UP ON BOTH SIDES. FOUND ON HIS R SIDE, SITTING UP FROM FLOOR. NO APPARENT INJURY INCURRED. DENIED PAIN, DIZZINESS, NAUSEA. FLUE GAS ANALYST AWARE OF FALL. INCIDENT REPORT TO BE COMPLETED.
--- NOTE | 2020-02-07 11:45 | PC.NURSE ---
SITTER AT BEDSIDE
[2020-02-07] MEDS: Lidocaine 4 % Patch ADH..PATCH 1 PATCH TRANSDERMA (12:22)
[2020-02-07 14:01] LABS: Glucose Urine UA NEG (NEG); Leukocyte Esterase Urine NEG (NEG); Nitrite Urine NEG (NEG); Urine Blood NEG (NEG); Urine Ketones 15 MG/DL (NEG); Urine Protein NEG (NEG-TRACE)
[2020-02-07 14:02] LABS: Appearance Urine HAZY; Color Urine YELLOW
[2020-02-07] MEDS: QUEtiapine Fumarate 25 MG TABLET PO (14:20)
--- NOTE | 2020-02-07 14:38 | PC.NURSE ---
MED REC COMPLETED, VERIFIED BY DAUGHTER. PLACEMENT PENDING INSURANCE
--- NOTE | 2020-02-07 14:40 | PC.NURSE ---
PT VERY RESTLESS. COOPERATIVE, FOLLOWING COMMANDS BUT AGITATED, OBSESSING OVER HIS BLANKETS, REMOVING SOCKS, ATTEMPTING TO LEAVE BED. CHAIR PLACED AT BEDSIDE FOR TRIAL, BECAME MORE DIFFICULT TO REDIRECT HIM. NOW BACK IN BED, LAW FIRM RECEPTIONIST AWARE. MEDICATED FOR AGITATION.
--- NOTE | 2020-02-07 16:15 | PC.NURSE ---
CASE MGMT UNABLE TO PLACE PT D/T INSURANCE AUTHORIZATION. [facility] WILL TRY AGAIN TOMORROW AND BE IN TOUCH ABOUT TRANSFER.
--- NOTE | 2020-02-07 17:31 | PC.NURSE ---
PT CURRENTLY SLEEPING IN STRETCHER IN HIS ROOM. BED ALARM IN PLACE.
[2020-02-07] MEDS: Atorvastatin Calcium 20 MG TABLET PO (20:19)
--- NOTE | 2020-02-07 21:32 | PC.NURSE ---
PT CALM AND COOPERATIVE IN STRETCHER WATCHING TV. PT FOLLOWS SIMPLE COMMANDS AND HAS NOT GOT OUT OF BED RECENTLY. REMINDED PT NOT TO GET OOB. BED ALARM IN PLACE. FALL PRECAUTIONS MAINTAINED.
--- NOTE | 2020-02-07 22:45 | PC.NURSE ---
PT RESTLESS AND TRYING TO GET OOB. PT RE-DIRECTED AND EXPLAINED TO PT HE CAN NOT GET OOB D/T RECENT FALLS. PT CLEANED UP WITH FRESH LINENS APPLIED TO BED. VS OBTAINED. PT DRINKING DIET LORY PILAR AND EATING CRACKERS AT THIS TIME.
[2020-02-08] VITALS (10 sets, daily range): BP systolic 123–144; BP diastolic 66–82; PULSE 68–89; RESP 16–18; TEMP 36.8; O2SAT 96–98
--- NOTE | 2020-02-08 00:30 | PC.NURSE ---
PT MOVED TO HOSPITAL BED FOR COMFORT AND FOR BED ALARM.
--- NOTE | 2020-02-08 02:15 | PC.NURSE ---
PT RESTLESS IN HOSPITAL BED PULLING OFF GOWN AND TRYING TO GET OOB. PT DENIES ANY COMPLAINTS, PT FOLLOWS SIMPLE COMMANDS AND REDIRECTABLE. PT REMAINS IN LINE OF SITE OF NURSING STATION. WILL CONTINUE TO MONITOR PT. BED IN LOW LOCKED POSITION, CALL VALENTIN W/I REACH. SIDE RAILS UP X 2.
--- NOTE | 2020-02-08 07:21 | PC.NURSE ---
Report received from Alice FODR. Patient resting comfortably in bed with bed alarm on and bed in locked lowest position. Patient reports no pain or needs at this time. Respirations regular and even. Skin PWD. Patient eating breakfast independently. Instructed to use call ku and to not get out of bed without assistance. Patient verbalizes understanding. Awaiting insurance auth for placement at [facility].
--- NOTE | 2020-02-08 08:34 | PC.NURSE ---
Patient ate entire breakfast independently. Reports satisfaction and denies further needs. Will continue to monitor.
[2020-02-08] MEDS: Atorvastatin Calcium 20 MG TABLET PO (09:01)
--- NOTE | 2020-02-08 09:08 | MHC.CM.ED ---
Patient remains in ER. Clinical updates sent to [facility] via [employer] so they can obtain insurance auth from [facility]. Continue to monitor for d/c needs.
--- NOTE | 2020-02-08 10:20 | PC.NURSE ---
Patient continues to remain comfortable with regular, even, and non-labored respirations. Skin PWD. VSS. Patient made attempt to get out of bed, very unsteady, able to redirect. Attempted to have patient rest in recliner but patient continuously tried to get up. Moved back to bed and patient made comfortable. Watching TV and denies needs at this time. Will continue to monitor.
--- NOTE | 2020-02-08 12:13 | PC.NURSE ---
Patient continues to rest in bed and remains comfortable. respirations regular and even. Skin PWD. Urinated in urinal independently. Plan remains for patient to go to [facility] this afternoon.
--- NOTE | 2020-02-08 13:02 | MHC.CM.ED ---
Insurance auth has been obtained by [facility]. Patient can leave ER at 2pm. [facility] booked. Med nec with chart. Patient, daughter Jenna Alcantara NP and Alise FORD aware. Continue to monitor for d/c needs.
--- NOTE | 2020-02-08 13:15 | PC.NURSE ---
Patient eating lunch independently. Denies needs at this time.
== END 2020-02-08 14:10 | disposition skilled nursing facility (03) ==
PROVIDERS: Nurse Practitioner Family; Emergency Provider Emergency Medicine
DX: S39.92XA Unspecified injury of lower back, initial encounter (principal); G30.0 Alzheimer's disease with early onset; G44.309 Post-traumatic headache, unspecified, not intractable; F02.80 Dementia in other diseases classified elsewhere, unspecified severity, without behavioral disturbance, psychotic disturbance, mood disturbance, and anxiety; W06.XXXA Fall from bed, initial encounter; Y93.9 Activity, unspecified; Y92.003 Bedroom of unspecified non-institutional (private) residence as the place of occurrence of the external cause; Y99.9 Unspecified external cause status; Z79.899 Other long term (current) drug therapy; Z20.828 Contact with and (suspected) exposure to other viral communicable diseases
CPT/HCPCS: 36415; 70450; 71046; 72070; 72100; 72125; 80048; 81003; 84484; 85025; 87635; 93005; 99284; 99285

== ENCOUNTER 2021-08-04 18:45 | Emergency (ER) | payer MEDICARE, MEDICAID, SELFPAY ==
[2021-08-04 18:58] VITALS: BP 124/71; BP 127/74; PULSE 74; PULSE 78; RESP 16; TEMP 36.6; O2SAT 96; O2SAT 98; BMI 28.0
--- NOTE | 2021-08-04 19:10 | ED.GENADULT ---
HPI - General Adult General Chief complaint: Psychiatric Symptoms Stated complaint: section 12 Time Seen by Provider: 08/04/21 18:48 Source: EMS Mode of arrival: EMS Limitations: altered mental status History of Present Illness HPI narrative: Patient comes via ambulance from [facility] on a Section 12. The staff reports that the patient has been having increased agitation and aggression especially towards female staff members. Patient has history of Alzheimer's dementia. Patient voices no complaints Related Data Home Medications Medication Instructions Recorded Confirmed atorvastatin 20 mg tablet 20 mg PO DAILY 01/20/20 02/07/20 Multi Vitamin 1 tab PO DAILY 02/05/20 02/08/20 Previous Rx's Medication Instructions Recorded walker #1 ea 02/06/20 Allergies Allergy/AdvReac Type Severity Reaction Status Date / Time No Known Allergies [NKA] Allergy Mild NOT Verified 04/26/20 14:06 APPLICABLE Review of Systems Review of Systems: Yes Unobtainable due to mental condition PMFSH Past Medical History Medical History Alzheimer's disease with early onset Diabetes mellitus Pure hypercholesterolemia Urinary incontinence Surgical History H/O hand surgery Family History Family History Father Throat cancer Mother Uterine cancer Family/Other FH: mental illness Social History Social History Alcohol intake: never Physical Exam ED Vital Signs: Vital Signs - 24 hr 08/04/21 18:58 Temperature 97.9 F Pulse Rate 74 Respiratory Rate 16 Blood Pressure 124/71 Pulse Oximetry 96 BMI result Body Mass Index 28.0 Const Other: Appearance: Alert. Oriented x1. No acute distress. Eyes: Pupils equal, round and reactive to light. ENT: Pharynx normal. Neck: Normal inspection. Neck supple. No lymph nodes noted. No crepitus CVS: Normal heart rate and rhythm. Pulses normal. Normal S1 and S2 Respiratory: No respiratory distress. Breath sounds normal. No Wheezing. No rales Abdomen: Soft and nontender. No rigidity. No distention. Skin: Skin warm and dry. Normal skin color. Normal skin turgor. Extremities: No lower extremity edema. No Lacerations. No Rash Neuro: Oriented X 1. No motor deficit. No sensory deficit. Moving all extremities. No slurred speech. CN 2 through 12 grossly intact Psych: calm, cooperative, normal affect, not aggressive, friendly towards all the staff Course Course Course Narrative: Urinalysis pending. At this time, patient remains calm, cooperative, friendly towards everyone , patient has not been aggressive at all. Patient's vital stable, urinalysis pending. Physician observation started at 19:25 Discharge Plan Discharge Clinical Impression: Dementia Patient Disposition: Still a Patient Prescriptions: No [facility] Multi Vitamin 1 tab PO DAILY 0RF (DME) walker Misc See Rx Instructions .ROUTE .MEDSUPPLY Qty: 1 0RF Rx Instructions: As directed atorvastatin 20 mg tablet 20 mg PO DAILY 0RF
[2021-08-04 20:00] VITALS: BP 130/74; PULSE 72; RESP 16; TEMP 36.6; O2SAT 98
--- NOTE | 2021-08-04 20:10 | PC.NURSE ---
PATIENT WAS CHANGE INTO HOSPITAL ATTIRE BY THIS PCT .
[2021-08-04 20:48] LABS: Appearance Urine CLEAR; Color Urine YELLOW; Glucose Urine UA NEG (NEG); Leukocyte Esterase Urine NEG (NEG); Nitrite Urine NEG (NEG); Specific Gravity - Urine <= 1.005 (1.005-1.025); Urine Blood NEG (NEG); Urine Ketones NEG (NEG); Urine Protein NEG (NEG-TRACE)
[2021-08-04 20:53] LABS: COVID-19 Test Negative (Negative); IDNOW Serial# 08D9AD1C
[2021-08-04 21:03] LABS: Amphetamine Screen Urine Not Detected (Not Detect); Barbiturates, Urine Not Detected (Not Detect); Benzodiazepines Screen Urine Not Detected (Not Detect); Cannabinoid Screen Urine Not Detected (Not Detect); Cocaine Screen Urine Not Detected (Not Detect); Fentanyl, urine Not Detected (Not Detect); Opiate Screen Urine Not Detected (Not Detect); Phencyclidine Screen Urine Not Detected (Not Detect)
[2021-08-04 22:00] VITALS: RESP 16
[2021-08-04] MEDS: LORazepam 1 MG TABLET PO (23:31)
[2021-08-05] VITALS: BP 116/64; PULSE 72; RESP 16; TEMP 36.6; O2SAT 97
--- NOTE | 2021-08-05 00:08 | PC.NURSE ---
PATIENT HAD A LARGE BOWEL MOVEMENT ON THE TOILET .
--- NOTE | 2021-08-05 01:32 | PC.NURSE ---
PATIENT WAS INC OF BOTH URINE AND STOOL ,CARE WAS GIVEN ,BEDDINGS WAS CHANGE ,PATIENT NOW RESTING .
[2021-08-05 02:50] VITALS: BP 147/78; PULSE 75; RESP 18; O2SAT 98
[2021-08-05] MEDS: OLANZapine 10 MG VIAL 5 MG IM (02:56)
[2021-08-05 03:05] VITALS: BP 145/77; PULSE 70; RESP 16; O2SAT 97
[2021-08-05 03:20] VITALS: BP 120/75; PULSE 65; RESP 16; O2SAT 98
[2021-08-05 03:35] VITALS: BP 122/78; PULSE 63; RESP 16; O2SAT 98
[2021-08-05 03:50] VITALS: PULSE 80; RESP 16
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
--- NOTE | 2021-08-05 10:42 | PHA.MEDREC ---
Pharmacy Consult ? Medication Reconciliation Pharmacy has completed the medication reconciliation. LIST FROM FACILITY
--- NOTE | 2021-08-05 12:54 | MHC.CM.ED ---
Pt has been medically cleared by ED provider to return to [facility]: CM contacted facility and gave clinical report to pt's RN. Call placed to pt's dtr to inform her of pt's return. BLS transport via [facility] arranged for 2:30pm p/u.
== END 2021-08-05 15:18 | disposition skilled nursing facility (03) ==
PROVIDERS: Emergency Provider Emergency Medicine
DX: G30.0 Alzheimer's disease with early onset (principal); F02.81 Dementia in other diseases classified elsewhere, unspecified severity, with behavioral disturbance; E11.9 Type 2 diabetes mellitus without complications; Z20.822 Contact with and (suspected) exposure to COVID-19
CPT/HCPCS: 80307; 81003; 87635; 96372; 99284; 99285

== ENCOUNTER 2021-09-03 11:10 | Emergency (ER) | payer MEDICARE, MEDICAID, SELFPAY ==
--- NOTE | ~2021-09-03 | CT_ITS ---
EXAMINATION: CT HEAD WITHOUT CONTRAST CLINICAL INFORMATION: Fall. COMPARISON: Most recent CT head dated 02/07/2020. TECHNIQUE: Contiguous axial imaging was performed from the skull base to vertex without intravenous administration of contrast. This CT examination was performed using dose optimization techniques as appropriate, variously including the following: *Automated exposure control *Adjustment of mA and/or kV according to patient size (this includes techniques or standardized protocols for targeted exams where dose is matched to indication/reason for exam; i.e. extremities or head) *Use of iterative reconstruction technique DLP: 643 mGy-cm FINDINGS: The ventricles and sulci are enlarged consistent with diffuse atrophy. No visualized masses or midline shift are seen. There is no intra-axial or extra-axial hemorrhage. There are no fluid collections. Decreased attenuation is seen in the periventricular white matter compatible with chronic small vessel ischemic disease. The gallegos-white discrimination is preserved. The included paranasal sinuses and mastoid air cells are well aerated. The calvarium is intact. CT/CT head/brain wo con IMPRESSION: No intracranial hemorrhage or mass effect. Generalized atrophy and chronic small vessel white matter ischemic changes. No significant interval change.
[2021-09-03 11:24] VITALS: BP 110/81; BP 123/75; PULSE 82; PULSE 98; RESP 16; O2SAT 95; O2SAT 97; BMI 26.6
--- NOTE | 2021-09-03 11:36 | ED.GENADULT ---
HPI - General Adult General Chief complaint: General Medical <KAREL Oconnor - Last Filed: 09/03/21 21:33> Stated complaint: AGGRESIVE TOWARDS STAFF @ [facility] <KAREL Oconnor - Last Filed: 09/03/21 21:33> Time Seen by Provider: 09/03/21 11:26 <KAREL Oconnor - Last Filed: 09/03/21 21:33> Source: patient, EMS, RN notes reviewed and old records reviewed <KAREL Oconnor - Last Filed: 09/03/21 21:33> Mode of arrival: EMS <KAREL Oconnor - Last Filed: 09/03/21 21:33> Limitations: altered mental status and other (History of Alzheimer's dementia) <KAREL Oconnor - Last Filed: 09/03/21 21:33> History of Present Illness HPI narrative: 71-year-old male with past medical history of Alzheimer's dementia, CAD, BPH, constipation, falls, insomnia, metabolic encephalopathy lumbar L1 and L5 compression fractures is brought to ED by EMS from [facility]. Patient was very aggressive this morning toward staff. Patient was hitting and unable to be redirected. Patient was medicated with initially 0.5 mg of lorazepam at 930 then again at 10 20 he was medicated with lorazepam 1 mg and trazodone 50 mg. Patient is unable to answer all the questions, however he does report that he fell today. He does have a history of falls. Denies any headache, dizziness, CP, presyncope, syncope, SOB with or without exertion, palpitations, LOC <KAREL Oconnor - Last Filed: 09/03/21 21:33> Related Data Home medications: Home Medications Medication Instructions Recorded Confirmed acetaminophen 650 mg rectal 650 mg MA Q4H PRN Pain 08/05/21 08/05/21 suppository acetaminophen 650 mg tablet 650 mg PO Q4H PRN Pain 08/05/21 08/05/21 aspirin 81 mg chewable tablet 81 mg PO DAILY 08/05/21 08/05/21 atorvastatin 40 mg tablet 40 mg PO BEDTIME 08/05/21 08/05/21 bisacodyl 10 mg rectal suppository 10 mg MA DAILY PRN Constipation 08/05/21 08/05/21 finasteride 5 mg tablet 5 mg PO BEDTIME 08/05/21 08/05/21 isosorbide dinitrate 10 mg tablet 10 mg PO TID 08/05/21 08/05/21 lidocaine 4 % topical patch 2 patch topical DAILY 08/05/21 08/05/21 (Lidocaine Pain Relief) loperamide 2 mg capsule 2 mg PO Q4H PRN Diarrhea 08/05/21 08/05/21 lorazepam 1 mg tablet 1 mg PO Q6H PRN Anxiety 08/05/21 08/05/21 lorazepam 2 mg/mL injection 1 mg IM Q6H PRN Anxiety 08/05/21 08/05/21 solution magnesium hydroxide 400 mg/5 mL 30 ml PO DAILY PRN Constipation 08/05/21 08/05/21 oral suspension (Milk of Magnesia) melatonin 3 mg tablet 6 mg PO BEDTIME 08/05/21 08/05/21 metoprolol succinate 25 mg 12.5 mg PO DAILY 08/05/21 08/05/21 tablet,extended release 24 hr morphine 10 mg/5 mL oral solution 5 mg PO Q6H PRN Pain (Scale Score 08/05/21 08/05/21 4-6) multivitamin 1 tab PO DAILY 08/05/21 08/05/21 olanzapine 2.5 mg tablet 2.5 mg PO BID 08/05/21 08/05/21 oxcarbazepine 150 mg tablet 150 mg PO BID 08/05/21 08/05/21 pantoprazole 40 mg tablet,delayed 40 mg PO DAILY@0630 08/05/21 08/05/21 release paroxetine HCl 10 mg tablet 10 mg PO BEDTIME 08/05/21 08/05/21 quetiapine 25 mg tablet 25 mg PO DAILY 08/05/21 08/05/21 quetiapine 25 mg tablet 25 mg PO Q8H PRN PARANOIA 08/05/21 08/05/21 quetiapine 25 mg tablet 75 mg PO BEDTIME 08/05/21 08/05/21 quetiapine 50 mg tablet 75 mg PO DAILY@1400 08/05/21 08/05/21 sennosides 8.6 mg tablet (senna) 8.6 mg PO DAILY 08/05/21 08/05/21 simethicone 80 mg chewable tablet 80 mg PO BID PRN GAS 08/05/21 08/05/21 sodium chloride 0.65 % nasal spray 1 spray intranasal DAILY 08/05/21 08/05/21 aerosol (Saline Nasal) sodium chloride 0.65 % nasal spray 1 spray intranasal Q4H PRN Dry 08/05/21 08/05/21 aerosol (Saline Nasal) Nasal Passages sodium phosphates 19 gram-7 118 ml MA DAILY PRN Constipation 08/05/21 08/05/21 gram/118 mL enema (Fleet Enema) tamsulosin 0.4 mg capsule 0.4 mg PO DAILY@1700 08/05/21 08/05/21 ticagrelor 90 mg tablet (Brilinta) 90 mg PO BID 08/05/21 08/05/21 trazodone 50 mg tablet 50 mg PO DAILY@1400 08/05/21 08/05/21 trazodone 50 mg tablet 50 mg PO Q8H PRN INAPPROPRIATE 08/05/21 08/05/21 SEXUAL BEHAVIOR trazodone 50 mg tablet 75 mg PO BEDTIME 08/05/21 08/05/21 white petrolatum 1 appl topical BEDTIME 08/05/21 08/05/21 zolpidem 5 mg tablet 5 mg PO BEDTIME 08/05/21 08/05/21 Previous Rx's Medication Instructions Recorded walker #1 ea 02/06/20 <MERLYN Oconnor- - Last Filed: 09/03/21 21:33> Allergies/adverse reactions: Allergies Allergy/AdvReac Type Severity Reaction Status Date / Time No Known Allergies [NKA] Allergy Mild NOT Verified 04/26/20 14:06 APPLICABLE <KAREL Oconnor - Last Filed: 09/03/21 21:33> Review of Systems Review of Systems: Constitutional : No Weight loss, No Fever, No Chills, No Night Sweats, No Fatigue, No Malaise ENT/Mouth : No Ear Pain, No Nasal Congestion, No Sinus Pain, No Hoarseness, No sore throat, No Rhinorrhea, No Swallowing Difficulty Eyes: No Eye Pain, No Swelling, No Redness No Discharge Cardiovascular : No Chest Pain, No SOB, No Dyspnea on Exertion, No Orthopnea, No Edema, No Palpitations Respiratory : No Cough, No Sputum, No Wheezing Gastrointestinal : No Nausea, No Vomiting, No Diarrhea, No Constipation, No abdominal Pain Genitourinary : no irregular bleeding, No Dysuria, No Hematuria, Urinary Incontinence, No Flank Pain, Musculoskeletal : No joint pain, No Myalgias, No Joint Swelling Skin : No Skin Lesions, No rash Neuro : No Weakness, No Numbness, No Paresthesias, No Loss of Consciousness, No Dizziness, No Headache Psych : Aggressive behavior reported toward staff, No Depression, No SI/HI/AH/VH, No Social Issues, Heme/Lymph: No Bruising, No Bleeding,No Lymphadenopathy <Kim Montez PATIENT CENTERED CARE SPECIALIST-BC - Last Filed: 09/03/21 21:33> Yes all other systems are reviewed and are negative <Kim Montez PATIENT CENTERED CARE SPECIALIST-BC - Last Filed: 09/03/21 21:33> Neurologic: Reports Abnormal speech present <CHANTAL OconnorP-BC - Last Filed: 09/03/21 21:33> [facility] Past Medical History Medical History: Medical History Alzheimer's disease with early onset Diabetes mellitus Pure hypercholesterolemia Urinary incontinence <CHANTAL OconnorP-BC - Last Filed: 09/03/21 21:33> Surgical History: Surgical History H/O hand surgery <CHANTAL OconnorP-BC - Last Filed: 09/03/21 21:33> Family History Family History: Family History Father Throat cancer Mother Uterine cancer Family/Other FH: mental illness <CHANTAL OconnorP-BC - Last Filed: 09/03/21 21:33> Social History Social History: Social History Alcohol intake: former Patient Tobacco Use Status: Never used Tobacco Use of substances other than those prescribed or required for medical reasons: No Advance Directives: Yes Advance Directives on File: Yes Advance Directives Date on File: 02/08/20 <MERLYN Oconnor-BC - Last Filed: 09/03/21 21:33> Physical Exam ED Vital Signs: Vital Signs - 24 hr 09/03/21 11:24 09/03/21 16:31 09/03/21 18:00 Pulse Rate 82 90 88 Respiratory Rate 16 16 Blood Pressure 110/81 145/73 H 182/94 H Pulse Oximetry 97 98 Oxygen Delivery Method Room Air Room Air 09/03/21 18:27 Pulse Rate 112 H Respiratory Rate Blood Pressure 135/86 Pulse Oximetry Oxygen Delivery Method BMI result Body Mass Index 26.6 <MERLYN Oconnor-BC - Last Filed: 09/03/21 21:33> Vital Signs - 24 hr 09/03/21 11:24 09/03/21 16:31 09/03/21 18:00 Pulse Rate 82 90 88 Respiratory Rate 16 16 Blood Pressure 110/81 145/73 H 182/94 H Pulse Oximetry 97 98 Oxygen Delivery Method Room Air Room Air 09/03/21 18:27 Pulse Rate 112 H Respiratory Rate Blood Pressure 135/86 Pulse Oximetry Oxygen Delivery Method BMI result Body Mass Index 26.6 <MAILE Sherman - Last Filed: 09/03/21 22:13> Const General: cooperative, healthy appearing, no acute distress and other (Sleepy) <MERLYN Oconnor-BC - Last Filed: 09/03/21 21:33> Nutritional Appearance: average body habitus <MERLYN Oconnor-BC - Last Filed: 09/03/21 21:33> Orientation/consciousness: oriented to person <CHANTAL OconnorP-BC - Last Filed: 09/03/21 21:33> HENMT Head: Yes normal to inspection and Yes normocephalic <MERLYN Oconnor-BC - Last Filed: 09/03/21 21:33> Ears: hearing grossly normal bilaterally <MERLYN Oconnor-BC - Last Filed: 09/03/21 21:33> Mouth: Normal oral and palatal mucosa present, oropharynx normal and moist mucous membranes <MERLYN Oconnor-BC - Last Filed: 09/03/21 21:33> Throat: Yes posterior oropharynx normal <Kim D Tc, PATIENT CENTERED CARE SPECIALIST-BC - Last Filed: 09/03/21 21:33> Eyes General: appearance normal, both eyes and all related structures <Kim D Tc, PATIENT CENTERED CARE SPECIALIST-BC - Last Filed: 09/03/21 21:33> Periorbital: periorbital findings normal <Kim D Tc, PATIENT CENTERED CARE SPECIALIST-BC - Last Filed: 09/03/21 21:33> Eyelids: Yes eyelids normal <Kim D Tc, PATIENT CENTERED CARE SPECIALIST-BC - Last Filed: 09/03/21 21:33> Conjunctivae: conjunctivae normal <Kim D Tc, PATIENT CENTERED CARE SPECIALIST-BC - Last Filed: 09/03/21 21:33> Sclerae: sclerae normal <Kim D Tc, PATIENT CENTERED CARE SPECIALIST-BC - Last Filed: 09/03/21 21:33> Corneas: corneas normal <Kim D Tc, PATIENT CENTERED CARE SPECIALIST-BC - Last Filed: 09/03/21 21:33> Pupils: Equal, round and reactive pupils present <Kim D Tc, PATIENT CENTERED CARE SPECIALIST-BC - Last Filed: 09/03/21 21:33> Neck Neck: Yes normal visual inspection, Yes full ROM, Yes trachea midline and Yes supple <Kim D Tc, PATIENT CENTERED CARE SPECIALIST-BC - Last Filed: 09/03/21 21:33> Resp Effort & Inspection: normal respiratory effort and able to speak in complete sentences <Kim D Tc, PATIENT CENTERED CARE SPECIALIST-BC - Last Filed: 09/03/21 21:33> Auscultation: clear to auscultation bilaterally <Kim D Tc, PATIENT CENTERED CARE SPECIALIST-BC - Last Filed: 09/03/21 21:33> Cardio Jugular venous distension: no JVD <Kim D Tc, PATIENT CENTERED CARE SPECIALIST-BC - Last Filed: 09/03/21 21:33> Rate: regular rate <Kim D Tc, PATIENT CENTERED CARE SPECIALIST-BC - Last Filed: 09/03/21 21:33> Heart sounds: S1 normal heart sound present, S2 normal heart sound present, no gallops, no murmurs and no rubs <Kim D Tc, PATIENT CENTERED CARE SPECIALIST-BC - Last Filed: 09/03/21 21:33> GI Inspection: Yes normal to inspection and No distended <Kim Montez PATIENT CENTERED CARE SPECIALIST-BC - Last Filed: 09/03/21 21:33> Palpation (GI): Soft to palpation, nontender and no guarding <Kim Montez PATIENT CENTERED CARE SPECIALIST-BC - Last Filed: 09/03/21 21:33> Percussion: Yes normal to percussion <Kim Montez PATIENT CENTERED CARE SPECIALIST-BC - Last Filed: 09/03/21 21:33> Auscultation: normal bowel sounds <Kim Montez PATIENT CENTERED CARE SPECIALIST-BC - Last Filed: 09/03/21 21:33> General: Yes no CVA tenderness <Kim Montez PATIENT CENTERED CARE SPECIALIST-BC - Last Filed: 09/03/21 21:33> Back/Spine/Pelvis Back: no CVA tenderness <Kim Montez PATIENT CENTERED CARE SPECIALIST-BC - Last Filed: 09/03/21 21:33> Cervical Spine: normal cervical lordosis <Kim Montez PATIENT CENTERED CARE SPECIALIST-BC - Last Filed: 09/03/21 21:33> Thoracic/Lumbar Spine: thoracic and lumbar spine normal to inspection <Kim Montez PATIENT CENTERED CARE SPECIALIST-BC - Last Filed: 09/03/21 21:33> Skin General skin exam: no rashes or lesions noted, elasticity normal and turgor normal <Kim Montez PATIENT CENTERED CARE SPECIALIST-BC - Last Filed: 09/03/21 21:33> Neuro General: oriented to person and other (History of Alzheimer's dementia) <Kim Montez PATIENT CENTERED CARE SPECIALIST-BC - Last Filed: 09/03/21 21:33> Cranial nerves: Yes Equal, round and reactive pupils present <CHANTAL OconnorP-BC - Last Filed: 09/03/21 21:33> Speech: Abnormal speech present <Kim Montez PATIENT CENTERED CARE SPECIALIST-BC - Last Filed: 09/03/21 21:33> Gait exam (Neuro): Other gait observations present (Unsteady gait) <Kim Montez PATIENT CENTERED CARE SPECIALIST-BC - Last Filed: 09/03/21 21:33> Coordination: other (Patient is unable to follow directions ) <MERLYN Oconnor-AMBROSE - Last Filed: 09/03/21 21:33> Course Course Course Narrative: 71-year-old male with past medical history of Alzheimer's dementia, CAD, BPH, constipation, falls, insomnia, metabolic encephalopathy lumbar L1 and L5 compression fractures is brought to ED by EMS from [facility]. Patient was very aggressive this morning toward staff. Patient was hitting and unable to be redirected. Patient was medicated by staff with initially 0.5 mg of lorazepam at 930 then again at 10 20 he was medicated with lorazepam 1 mg and trazodone 50 mg. Patient is unable to answer all the questions, however he does report that he fell today. He does have a history of falls. Denies any headache, dizziness, CP, presyncope, syncope, SOB with or without exertion, palpitations, LOC. Will do basic labs, medically clear patient and have be agency patient for placement. However patient already is on dementia unit. Neuro exam is negative for anything acute. However due to patient's fall will do CT scan of the head. Patient has otherwise negative exam. Patient is cooperative and quiet. Very sleepy probably from the medications she received at the facility before arriving here. <KAREL Oconnor - Last Filed: 09/03/21 21:33> Reevaluation(s) Reevaluation #1: Patient is sleeping, cooperative. CT scan negative for any acute processes. Urine obtained via straight catheter nurse reports 700 mL of urine in the bladder. Patient cooperative. All labs reviewed and no acute processes. Awaiting behavioral health assessment. <MERLYN Oconnor-AMBROSE - Last Filed: 09/03/21 21:33> Reevaluation #2: Spoke with psych and was recommended to order Case Management for patient's placement. No acute processes found. <KAREL Oconnor - Last Filed: 09/03/21 21:33> Reevaluation #3: facility is refusing to take patient until he is evaluated by Behavioral Health. Order placed and awaiting evaluation. Patient currently is cooperative. Daughter at the bedside. <KAREL Oconnor - Last Filed: 09/03/21 21:33> Additional Reevaluation(s): Patient was evaluated by N, awaiting disposition. They will call patient's daughter to discuss with her. Patient was slightly educated before, trazodone ordered for patient same dose as at the facility. Report to Denita GR <MERLYN Oconnor- - Last Filed: 09/03/21 21:33> Patient was evaluated by N, awaiting disposition. They will call patient's daughter to discuss with her. Patient was slightly educated before, trazodone ordered for patient same dose as at the facility. Report to Denita GR [address] [facility] spoke to Dr. Barber, they think this is behavioral/ dementia at this time patient can be dc back to snf <MAILE Sherman - Last Filed: 09/03/21 22:13> Medical Decision Making Lab Data Result diagrams: : 09/03/21 11:50 09/03/21 11:50 <MERLYN Oconnor- - Last Filed: 09/03/21 21:33> Labs: Lab Results 09/03/21 09/03/21 09/03/21 Range/Units 11:50 11:50 12:42 WBC 6.0 (4.8-10.8) X10*3/uL RBC 3.63 L (4.60-5.80) X10*6/uL Hgb 11.5 L (14.0-18.0) g/dl Hct 33.0 L (42.0-52.0) % MCV 90.9 (80.0-98.0) fL MCH 31.7 (27.0-33.0) pg MCHC 34.8 (31.0-36.0) g/dl RDW 13.3 (11.0-16.0) % Plt Count 217 (160-400) X10*3/uL MPV 10.0 (9.4-12.4) fL Immature Gran % (Auto) 0.3 (0.0-0.4) % Neut % (Auto) 60.2 (45-73) % Lymph % (Auto) 25.9 (20-40) % [place] % (Auto) 11.6 H (2-11) % Eos % (Auto) 1.5 (0-4) % Baso % (Auto) 0.5 (0-2) % Lymph # (Auto) 1.6 (1.2-4.9) X10*3/uL [place] # (Auto) 0.7 (0.1-1.2) X10*3/uL Eos # (Auto) 0.1 (0.0-0.4) X10*3/uL Baso # (Auto) 0.0 (0.0-0.2) X10*3/uL Abs Immat Gran (auto) 0.02 (0.00-0.03) X10*3/uL Absolute Neuts (auto) 3.6 (2.0-8.3) x10*3/uL Absolute Nucleated RBC 0.000 (0.0-0.012) X10*3/uL Nucleated RBC % (auto) 0.0 (0.0-0.2) /100WBC Sodium 133 L (135-145) mmol/L Potassium 4.0 (3.3-5.1) mmol/L Chloride 99 (96-108) mmol/L Carbon Dioxide 27 (22-29) mmol/L Anion Gap 11 L (12-20) BUN 9 (9-16) mg/dL Creatinine 0.74 (0.5-1.4) mg/dL Estim Creat Clear Calc 83.8 Estimated GFR > 60 Random Glucose 117 H (60-115) mg/dL Calcium 9.1 (8.4-10.2) mg/dL Total Bilirubin 0.3 (0.0-1.0) mg/dL AST 16 D (5-37) U/L ALT 14 (0-40) U/L Alkaline Phosphatase 152 H (39-117) U/L Total Protein 7.1 (6.5-8.0) g/dL Albumin 3.9 (3.5-5.0) g/dL Urine Color YELLOW Urine Appearance CLEAR Urine pH 7.0 (5.0-8.0) Ur Specific [place] 1.015 (1.005-1.025) Urine Protein NEG (NEG-TRACE) MG/DL Urine Glucose (UA) NEG (NEG) MG/DL Urine Ketones NEG (NEG) MG/DL Urine Blood NEG (NEG) Urine Nitrite NEG (NEG) Ur Leukocyte Esterase NEG (NEG) <Kim D Tc, PATIENT CENTERED CARE SPECIALIST-BC - Last Filed: 09/03/21 21:33> Lab Results 09/03/21 09/03/21 09/03/21 Range/Units 11:50 11:50 12:42 WBC 6.0 (4.8-10.8) X10*3/uL RBC 3.63 L (4.60-5.80) X10*6/uL Hgb 11.5 L (14.0-18.0) g/dl Hct 33.0 L (42.0-52.0) % MCV 90.9 (80.0-98.0) fL MCH 31.7 (27.0-33.0) pg MCHC 34.8 (31.0-36.0) g/dl RDW 13.3 (11.0-16.0) % Plt Count 217 (160-400) X10*3/uL MPV 10.0 (9.4-12.4) fL Immature Gran % (Auto) 0.3 (0.0-0.4) % Neut % (Auto) 60.2 (45-73) % Lymph % (Auto) 25.9 (20-40) % [place] % (Auto) 11.6 H (2-11) % Eos % (Auto) 1.5 (0-4) % Baso % (Auto) 0.5 (0-2) % Lymph # (Auto) 1.6 (1.2-4.9) X10*3/uL [place] # (Auto) 0.7 (0.1-1.2) X10*3/uL Eos # (Auto) 0.1 (0.0-0.4) X10*3/uL Baso # (Auto) 0.0 (0.0-0.2) X10*3/uL Abs Immat Gran (auto) 0.02 (0.00-0.03) X10*3/uL Absolute Neuts (auto) 3.6 (2.0-8.3) x10*3/uL Absolute Nucleated RBC 0.000 (0.0-0.012) X10*3/uL Nucleated RBC % (auto) 0.0 (0.0-0.2) /100WBC Sodium 133 L (135-145) mmol/L Potassium 4.0 (3.3-5.1) mmol/L Chloride 99 (96-108) mmol/L Carbon Dioxide 27 (22-29) mmol/L Anion Gap 11 L (12-20) BUN 9 (9-16) mg/dL Creatinine 0.74 (0.5-1.4) mg/dL Estim Creat Clear Calc 83.8 Estimated GFR > 60 Random Glucose 117 H (60-115) mg/dL Calcium 9.1 (8.4-10.2) mg/dL Total Bilirubin 0.3 (0.0-1.0) mg/dL AST 16 D (5-37) U/L ALT 14 (0-40) U/L Alkaline Phosphatase 152 H (39-117) U/L Total Protein 7.1 (6.5-8.0) g/dL Albumin 3.9 (3.5-5.0) g/dL Urine Color YELLOW Urine Appearance CLEAR Urine pH 7.0 (5.0-8.0) Ur Specific [place] 1.015 (1.005-1.025) Urine Protein NEG (NEG-TRACE) MG/DL Urine Glucose (UA) NEG (NEG) MG/DL Urine Ketones NEG (NEG) MG/DL Urine Blood NEG (NEG) Urine Nitrite NEG (NEG) Ur Leukocyte Esterase NEG (NEG) <MAILE Sherman - Last Filed: 09/03/21 22:13> Imaging Data CT scan - head: Attestation: I personally reviewed and interpreted this imaging study as follows: <MERLYN Oconnor-BC - Last Filed: 09/03/21 21:33> Radiologist's impression: FINDINGS: The ventricles and sulci are enlarged consistent with diffuse atrophy. No visualized masses or midline shift are seen. There is no intra-axial or extra-axial hemorrhage. There are no fluid collections. Decreased attenuation is seen in the periventricular white matter compatible with chronic small vessel ischemic disease. The gallegos-white discrimination is preserved. ? The included paranasal sinuses and mastoid air cells are well aerated. The calvarium is intact. CT/CT head/brain wo con IMPRESSION: No intracranial hemorrhage or mass effect. Generalized atrophy and chronic small vessel white matter ischemic changes. No significant interval change. <CHANTAL OconnorP-BC - Last Filed: 09/03/21 21:33> Critical Care Time Critical Care Time Critical Care Time: No <MAILE Sherman - Last Filed: 09/03/21 22:13> Discharge Plan Discharge Clinical Impression: Alzheimer's disease with early onset <Kim Manzanoshanika KAREL - Last Filed: 09/03/21 21:33> Patient Disposition: Home, Self-Care <Kim Caraballo Tc KAREL - Last Filed: 09/03/21 21:33> Instructions: Dementia (ED) <Kim Ilya Tc, KAREL - Last Filed: 09/03/21 21:33> Additional Instructions: Take your medications as prescribed. If you were prescribed antibiotics today, it is important that you take your medication to their entirety, do not skip any doses, do not finish them early. Follow-up with your primary care provider this week. Return to the emergency department with new or worsening symptoms. Such as fevers, chills, chest pain, shortness of breath, nausea, vomiting, dizziness, headache, vision changes, lethargy In case of emergency call 911 <Kim CHANTAL CrespoJHONNY - Last Filed: 09/03/21 21:33> Prescriptions: No Action (DME) walker Misc See Rx Instructions .ROUTE .MEDSUPPLY Qty: 1 0RF Rx Instructions: As directed atorvastatin 40 mg Tablet 40 mg PO BEDTIME melatonin 3 mg Tablet 6 mg PO BEDTIME finasteride 5 mg Tablet 5 mg PO BEDTIME isosorbide dinitrate 10 mg Tablet 10 mg PO TID Rx Instructions: allow nitrate-free interval of 12-14 hrs per 24-hr period lidocaine [Lidocaine Pain Relief] 4 % Adhesive Patch,Medicated 2 patch TOPICAL DAILY olanzapine 2.5 mg Tablet 2.5 mg PO BID metoprolol succinate 25 mg Tablet Extended Release 24 Hr 12.5 mg PO DAILY multivitamin Tablet,Chewable 1 tab PO DAILY quetiapine 25 mg Tablet 75 mg PO BEDTIME quetiapine 25 mg Tablet 25 mg PO DAILY oxcarbazepine 150 mg Tablet 150 mg PO BID sennosides [senna] 8.6 mg Tablet 8.6 mg PO DAILY acetaminophen 650 mg Suppository 650 mg MA Q4H PRN (Reason: Pain) paroxetine HCl 10 mg Tablet 10 mg PO BEDTIME trazodone 50 mg Tablet 50 mg PO DAILY@1400 trazodone 50 mg Tablet 75 mg PO BEDTIME acetaminophen 650 mg Tablet 650 mg PO Q4H PRN (Reason: Pain) tamsulosin 0.4 mg Capsule 0.4 mg PO DAILY@1700 pantoprazole 40 mg Tablet,Delayed Release (Dr/Ec) 40 mg PO DAILY@0630 zolpidem 5 mg Tablet 5 mg PO BEDTIME quetiapine 50 mg Tablet 75 mg PO DAILY@1400 Brilinta 90 mg Tablet 90 mg PO BID loperamide 2 mg Capsule 2 mg PO Q4H PRN (Reason: Diarrhea) Rx Instructions: administer after each loose stool until symptoms controlled; do not exceed 8 mg per 24 hrs lorazepam 2 mg/mL Solution 1 mg IM Q6H PRN (Reason: Anxiety) Rx Instructions: until symptoms controlled bisacodyl 10 mg Suppository 10 mg MA DAILY PRN (Reason: Constipation) Fleet Enema 19-7 gram/118 mL Enema 118 ml MA DAILY PRN (Reason: Constipation) lorazepam 1 mg Tablet 1 mg PO Q6H PRN (Reason: Anxiety) white petrolatum Ointment 1 appl TOPICAL BEDTIME Rx Instructions: APPLY TO INSIDE OF NARES aspirin 81 mg Tablet,Chewable 81 mg PO DAILY Saline Nasal 0.65 % Aerosol,[place] 1 spray INTRANASAL DAILY quetiapine 25 mg Tablet 25 mg PO Q8H PRN (Reason: PARANOIA) trazodone 50 mg Tablet 50 mg PO Q8H PRN (Reason: INAPPROPRIATE SEXUAL BEHAVIOR) morphine 10 mg/5 mL Solution 5 mg PO Q6H PRN (Reason: Pain (Scale Score 4-6)) simethicone 80 mg Tablet,Chewable 80 mg PO BID PRN (Reason: GAS) Saline Nasal 0.65 % Aerosol,[place] 1 spray INTRANASAL Q4H PRN (Reason: Dry Nasal Passages) magnesium hydroxide [Milk of Magnesia] 400 mg/5 mL Suspension 30 ml PO DAILY PRN (Reason: Constipation) <KAREL Oconnor - Last Filed: 09/03/21 21:33> Referrals: Rosendo Calvillo MD [Primary Care Provider] - 2 days <KAREL Oconnor - Last Filed: 09/03/21 21:33>
[2021-09-03 11:54] LABS: MANUAL DIFF FLAG NO
[2021-09-03 11:57] LABS: Basophils Percent Auto 0.5 % (0-2); Eosinophils Absolute Auto 0.1 X10*3/uL (0.0-0.4); Eosinophils Percent Auto 1.5 % (0-4); Hemoglobin 11.5 g/dl (14.0-18.0); Imm Gran Abs Auto 0.02 X10*3/uL (0.00-0.03); Imm Gran Pct Auto 0.3 % (0.0-0.4); Lymphocytes Absolute Auto 1.6 X10*3/uL (1.2-4.9); Lymphocytes Percent Auto 25.9 % (20-40); Mean Corpuscular HGB Conc 34.8 g/dl (31.0-36.0); Mean Corpuscular Hemoglobin 31.7 pg (27.0-33.0); Mean Corpuscular Volume 90.9 fL (80.0-98.0); Monocytes Absolute Auto 0.7 X10*3/uL (0.1-1.2); Monocytes Percent Auto 11.6 % (2-11); Neutrophils Absolute Auto 3.6 x10*3/uL (2.0-8.3); Neutrophils Percent Auto 60.2 % (45-73); Platelet Count 217 X10*3/uL (160-400); Red Blood Count 3.63 X10*6/uL (4.60-5.80); Red Cell Distribution Width 13.3 % (11.0-16.0)
[2021-09-03 12:11] LABS: Alanine Aminotransferase 14 U/L (0-40); Albumin Level 3.9 g/dL (3.5-5.0); Alkaline Phosphatase 152 U/L (39-117); Anion Gap 11 (12-20); Aspartate Amino Transferase 16 U/L (5-37); Bilirubin Total 0.3 mg/dL (0.0-1.0); Blood Urea Nitrogen 9 mg/dL (9-16); Calcium 9.1 mg/dL (8.4-10.2); Carbon Dioxide 27 mmol/L (22-29); Chloride 99 mmol/L (96-108); Creatinine Clr Calc Pharmacy 83.8; Estimated Glomerular Filt Rate > 60; Glucose Random 117 mg/dL (60-115); Sodium 133 mmol/L (135-145); Total Protein 7.1 g/dL (6.5-8.0)
--- NOTE | 2021-09-03 12:15 | PC.NURSE ---
pt very sleepy at this time, respirations even and unlabored, pt straight cathed for a urine sample-drained about 700ml of yellow urine, pt tolerated the procedure well
[2021-09-03 12:47] LABS: Appearance Urine CLEAR; Color Urine YELLOW; Glucose Urine UA NEG (NEG); Leukocyte Esterase Urine NEG (NEG); Nitrite Urine NEG (NEG); Specific Gravity - Urine 1.015 (1.005-1.025); Urine Blood NEG (NEG); Urine Ketones NEG (NEG); Urine Protein NEG (NEG-TRACE)
--- NOTE | 2021-09-03 12:55 | PC.NURSE ---
spoke with jael pt daughter and updated her on the pt's care plan if any questions her number [phone]
--- NOTE | 2021-09-03 14:32 | MHC.CM.PN ---
ERICK CONTACTED [facility] RISK CONTROL FIELD REPRESENTATIVE AT [phone], PER [employer] PT WAS EXTREMELY COMBATIVE, HURT SEVERAL PEOPLE, IT TOOK 4 PEOPLE TO RESTRAIN PT AND THEY SEC 12'D PT TO [facility] [place]. ERICK WILL RELAY INFO TO ED PROVIDER. ERICK SPOKE TO PT'S DTR/HCP ANANDA AT BEDSIDE AND SHE REPORTED SHE WOULD LIKE PT TO RETURN HOWEVER WANTS FACILITY TO CONTACT HER ANY TIME OF DAY IF PT BECOMES UPSET OR AGITATED, DTR ALSO REPORTS SHE WOULD LIKE PT OFF PSYCHIATRIC MEDICATION HOWEVER THE REVENUE CYCLE SPECIALIST AT [facility] WOULD LIKE TO STABILIZE PT ON MEDICATION.
--- NOTE | 2021-09-03 16:12 | MHC.CARE ---
BHN smart sheet completed
[2021-09-03 16:31] VITALS: BP 145/73; PULSE 90
--- NOTE | 2021-09-03 17:41 | PC.NURSE ---
Pt waiting for BHN consult, Sitting calmly with daugher. No distress noted
[2021-09-03 18:00] VITALS: BP 182/94; PULSE 88; RESP 16; O2SAT 98
[2021-09-03 18:27] VITALS: BP 135/86; PULSE 112
--- NOTE | 2021-09-03 18:27 | PC.NURSE ---
PATIENT WAS INC OF URINE ,CARE GIVEN BEDDING CHANGE .
--- NOTE | 2021-09-03 19:54 | PC.NURSE ---
this RN spoke with pt daughter and updated on POC, this RN offered pt food & attempted tolieting to which pt declined. pt remains on constant observation.
[2021-09-03] MEDS: traZODone HCL 50 MG TABLET PO (20:07)
--- NOTE | 2021-09-03 22:01 | PC.NURSE ---
[facility] evaluated pt and determined that the patient is cleared and able to be transferred back to the facility. Per [facility] they spoke with the facility who agrees with the plan.
--- NOTE | 2021-09-03 22:14 | PC.NURSE ---
per [facility] pt able to go back to facility, [facility] made facility aware, transport to be booked
--- NOTE | 2021-09-03 22:15 | PC.NURSE ---
This [employer] called [facility] at [phone] for a bls transfer back to [facility] per Lilia GR, spoke to Rosie from [facility] she stated she could not give me a ETA for pickup. Rn is aware
[2021-09-03] MEDS: LORazepam 1 MG TABLET PO (22:59)
--- NOTE | 2021-09-03 23:21 | PC.NURSE ---
pt continuosuly trying to get out of bed, studio receptionist at bedside to redirect pt,plan to send back to [facility]
--- NOTE | 2021-09-03 23:21 | PC.NURSE ---
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 charge accounts audit clerk aware
--- NOTE | 2021-09-03 23:29 | PC.NURSE ---
PATIENT WAS INC OF LARGE AMOUNT OF STOOL ,CARE GIVEN BEDDING CHANGE .
--- NOTE | 2021-09-03 23:30 | PC.NURSE ---
pt incontinent of stool, this RN and 2x EDT at bedside to provide perineal care & linen change, pt attempting to get out of bed during linen change and reluctant to let go of soiled linens. pt changed and cleaned, no safety events.
[2021-09-03] MEDS: HaloperidoL 5 MG TABLET PO (23:46)
[2021-09-04] MEDS: diphenhydrAMINE HCL 25 MG TABLET 50 MG PO (00:04)
--- NOTE | 2021-09-04 01:39 | PC.NURSE ---
pt sleeping, visible chest rise & fall. all safety measures maintained.
--- NOTE | 2021-09-04 03:45 | PC.NURSE ---
pt incontinent of urine, pt provided perineal care & linen change. pt offered gingerale & crackers
[2021-09-04 05:51] VITALS: BP 145/87; PULSE 93; RESP 16; TEMP 36.6; O2SAT 97
--- NOTE | 2021-09-04 06:15 | PC.NURSE ---
pt provided perineal care & linen change, pt offered crackers & gingerale
--- NOTE | 2021-09-04 07:10 | PC.NURSE ---
report from trudy campos plan for return to [facility] at [phone]
--- NOTE | 2021-09-04 09:40 | PC.NURSE ---
[facility] updated on pt
== END 2021-09-04 08:39 | disposition home or self-care (01) ==
PROVIDERS: Nurse Practitioner Family; Emergency Provider Emergency Medicine Emergency Medical Services; PCP Specialist
DX: G30.0 Alzheimer's disease with early onset (principal); F02.81 Dementia in other diseases classified elsewhere, unspecified severity, with behavioral disturbance; R41.82 Altered mental status, unspecified; Z79.899 Other long term (current) drug therapy
CPT/HCPCS: 36415; 70450; 80053; 81003; 85025; 99284; Q0163

== ENCOUNTER 2022-06-04 21:12 | Outpatient (REF) | payer MEDICARE, MEDICAID, SELFPAY ==
[2022-06-04 21:26] LABS: Appearance Urine Clear; Color Urine Yellow; Glucose Urine UA Negative (Negative); Leukocyte Esterase Urine Trace (Negative); Nitrite Urine Negative (Negative); PH 6.5 (5.0-9.0); UMIC TRIGGER UA YES; Urine Blood Negative (Negative); Urine Ketones Negative (Negative); Urine Protein Negative (Neg-Trace)
[2022-06-04 21:28] LABS: Bacteria Urine None Seen (None Seen); Hyaline Casts Urine 0-2 /LPF (0-2); RBC Urine 0-2 /HPF (0-2); Squamous Epithelial Cell Urine 0-2 /HPF (0-2); WBC Urine 0-5 /HPF (0-5)
== END 2022-06-04 21:13 | disposition home or self-care (01) ==
LOC: HO.LAB 21:12
PROVIDERS: Visit Provider Nurse Practitioner Adult Health
DX: Z13.89 Encounter for screening for other disorder (principal)
CPT/HCPCS: 81001; 87086

== ENCOUNTER 2022-10-16 11:44 | Outpatient (REF) | payer MEDICARE, SELFPAY | END 2022-10-16 11:45 | disposition home or self-care (01) | LOC: HO.WMHL 11:44 | PROVIDERS: Visit Provider Nurse Practitioner | DX: R41.82 Altered mental status, unspecified (principal); R30.0 Dysuria | CPT/HCPCS: 81001; 87086; 87088; 87186 ==

== ENCOUNTER 2023-12-16 11:11 | Outpatient (REF) | payer MEDICARE, SELFPAY | END 2023-12-16 11:12 | disposition home or self-care (01) | LOC: HO.WMHL 11:11 | PROVIDERS: Visit Provider Nurse Practitioner Acute Care | DX: R30.0 Dysuria (principal) | CPT/HCPCS: 81001; 87086 ==

== ENCOUNTER 2023-12-16 14:33 | Outpatient (REF) | payer MEDICARE, SELFPAY | END 2023-12-16 14:34 | disposition home or self-care (01) | LOC: HO.WMHL 14:33 | PROVIDERS: Visit Provider Nurse Practitioner Acute Care | DX: Z13.89 Encounter for screening for other disorder (principal) | CPT/HCPCS: 81001; 87086 ==